=== PATIENT | male | born 2000 | race Caucasian/White ===

== ENCOUNTER 2023-01-26 19:26 | Emergency (ER) | payer OTHER, MEDICAID, SELFPAY ==
[2023-01-26 19:32] VITALS: BP 113/69; PULSE 111; RESP 20; TEMP 37; O2SAT 99; BMI 24.3
--- NOTE | 2023-01-26 19:45 | ED.PSYCH ---
HPI - Psych General Chief Complaint: Psychiatric Symptoms Stated Complaint: SI Time Seen by Provider: 01/26/23 19:32 Source: patient and EMS Mode of arrival: EMS Limitations: other (Autism) History of Present Illness HPI Narrative: Patient comes to the emergency room via ambulance . According to EMS, the patient made suicidal statements to his mother. On arrival to the emergency room, patient is very shy, unwilling to talk. Patient states that he feels well. When I asked the patient if he had suicidal thoughts or if he said something regarding suicide, his answer is ?maybe otherwise, patient not providing any other information. Related Data Allergies Allergy/AdvReac Type Severity Reaction Status Date / Time No Known Allergies Allergy Unverified 04/18/20 17:05 Review of Systems Review of Systems: Yes Unobtainable due to mental condition (Autism) [facility] Past Medical History Medical History (Updated 01/26/23 @ 20:12 by Raquel Redman MD) Autism Physical Exam Vital Signs: Vital Signs: Last Vital Signs Temp 98.6 F 01/26/23 19:32 Pulse 111 H 01/26/23 19:32 Resp 20 01/26/23 19:32 BP 113/69 01/26/23 19:32 Pulse Ox 99 01/26/23 19:32 O2 Del Method Room Air 01/26/23 19:32 BMI result Body Mass Index 24.3 Const: Other: Appearance: Alert. Distress Eyes: Pupils equal, round and reactive to light. ENT: Pharynx normal. Neck: Normal inspection. Neck supple. No lymph nodes noted. No crepitus CVS: Normal heart rate and rhythm. Pulses normal. Normal S1 and S2 Respiratory: No respiratory distress. Breath sounds normal. No Wheezing. No rales Abdomen: Soft and nontender. No rigidity. No distention. Skin: Skin warm and dry. Normal skin color. Normal skin turgor. Extremities: No lower extremity edema. No Lacerations. No Rash Neuro: No sensory deficit. Moving all extremities. No slurred speech. CN 2 through 12 grossly intact Psych: calm, cooperative, very shy, avoids eye contact, avoids answering any questions Course Course Course Narrative: -all of patient's labs pending -care team consult pending -distension observation started at 20:11 Discharge Plan Discharge Clinical Impression: Suicidal ideation Patient Disposition: Still a Patient
[2023-01-26 20:47] LABS: MANUAL DIFF FLAG NO
[2023-01-26 20:49] LABS: Basophils Absolute Auto 0.1 X10*3/uL (0.0-0.2); Basophils Percent Auto 0.7 % (0-2); Eosinophils Absolute Auto 0.2 X10*3/uL (0.0-0.4); Eosinophils Percent Auto 1.7 % (0-4); Hematocrit 48.3 % (42.0-52.0); Hemoglobin 16.5 g/dl (14.0-18.0); Imm Gran Abs Auto 0.03 X10*3/uL (0.00-0.03); Imm Gran Pct Auto 0.3 % (0.0-0.4); Lymphocytes Percent Auto 9.4 % (20-40); Mean Corpuscular HGB Conc 34.2 g/dl (31.0-36.0); Mean Corpuscular Hemoglobin 30.3 pg (27.0-33.0); Mean Corpuscular Volume 88.8 fL (80.0-98.0); Mean Platelet Volume 8.5 fL (9.4-12.4); Monocytes Absolute Auto 0.5 X10*3/uL (0.1-1.2); Monocytes Percent Auto 4.2 % (2-11); Neutrophils Absolute Auto 8.9 x10*3/uL (2.0-8.3); Neutrophils Percent Auto 83.7 % (45-73); Platelet Count 330 X10*3/uL (160-400); Red Blood Count 5.44 X10*6/uL (4.60-5.80); Red Cell Distribution Width 12.1 % (11.0-16.0); White Blood Count 10.6 X10*3/uL (4.8-10.8)
[2023-01-26 20:50] LABS: Appearance Urine Clear; Color Urine Yellow; Glucose Urine UA Negative (Negative); Leukocyte Esterase Urine Negative (Negative); Nitrite Urine Negative (Negative); PH 6.5 (5.0-9.0); Specific Gravity - Urine <= 1.005 (1.005-1.025); Urine Blood Negative (Negative); Urine Ketones Negative (Negative); Urine Protein Negative (Neg-Trace)
[2023-01-26 21:05] LABS: Amphetamine Screen Urine Not Detected (Not Detect); Barbiturates, Urine Not Detected (Not Detect); Benzodiazepines Screen Urine Not Detected (Not Detect); Cannabinoid Screen Urine Not Detected (Not Detect); Cocaine Screen Urine Not Detected (Not Detect); Fentanyl, urine Not Detected (Not Detect); Opiate Screen Urine Not Detected (Not Detect); Phencyclidine Screen Urine Not Detected (Not Detect)
[2023-01-26 21:07] LABS: Acetaminophen LAB < 17 mcg/mL (<30); Salicylate < 5.0 mg/dL (15-30)
[2023-01-26 21:13] LABS: Alanine Aminotransferase 10 U/L (0-40); Albumin Level 5.3 g/dL (3.5-5.0); Alkaline Phosphatase 56 U/L (39-117); Anion Gap 15 (12-20); Aspartate Amino Transferase 14 U/L (5-37); Bilirubin Direct 0.2 mg/dL (0.0-0.5); Bilirubin Total 0.7 mg/dL (0.0-1.0); Blood Urea Nitrogen 10 mg/dL (9-16); Calcium 10.9 mg/dL (8.4-10.2); Carbon Dioxide 26 mmol/L (22-29); Chloride 104 mmol/L (96-108); Estimated Glomerular Filt Rate > 60; Ethanol < 10 mg/dL; Glucose Random 105 mg/dL (60-115); Potassium 3.8 mmol/L (3.3-5.1); Sodium 141 mmol/L (135-145)
[2023-01-26 21:37] VITALS: BP 146/68; PULSE 102; RESP 20; TEMP 37.2; O2SAT 100
[2023-01-27 01:34] VITALS: BP 103/67; PULSE 81; RESP 20; TEMP 36.4; O2SAT 98
[2023-01-27 06:24] VITALS: RESP 18
--- NOTE | 2023-01-27 06:37 | PC.NURSE ---
Patient slept through the night, no distress observed/reported, patient was seen by care team, disposition current provider, mother will come pick him up at 8 am this morning, discharge paper is up, VSS, behavior non concerning, currently not on any medication will continue to monitor.
== END 2023-01-27 07:33 | disposition home or self-care (01) ==
PROVIDERS: Emergency Provider Emergency Medicine
DX: R45.851 Suicidal ideations (principal); Z79.899 Other long term (current) drug therapy
CPT/HCPCS: 36415; 80048; 80076; 80143; 80179; 80307; 81003; 85025; 99284; S9485

== ENCOUNTER 2023-05-31 11:20 | Inpatient (IN) | payer MEDICAID, SELFPAY ==
[2023-05-31] VITALS (8 sets, daily range): BP systolic 105–125; BP diastolic 49–67; PULSE 84–118; RESP 16–22; TEMP 36.7–37.4; O2SAT 98–100; BMI 16.8
--- NOTE | ~2023-05-31 | XR_ITS ---
EXAMINATION: XR CHEST CLINICAL INFORMATION: Tachycardia COMPARISON: Previous chest x-ray 2016 TECHNIQUE: 2 views of the chest were obtained. FINDINGS: The cardiac and mediastinal contours are normal. The lungs are well-inflated. The lungs are clear. No pleural effusion or pneumothorax. Normal bony structures. XR/XR chest 2V IMPRESSION: Well-inflated lungs.
--- NOTE | ~2023-05-31 | CT_ITS ---
EXAMINATION: CT ABDOMEN AND PELVIS WITHOUT AND WITH CONTRAST CLINICAL INFORMATION: Left lower quadrant pain. Black stool. Rule out GI bleed. COMPARISON: None available. TECHNIQUE: Axial images through the abdomen and pelvis pre and post 80 mL Omnipaque 350 IV contrast. Sagittal and coronal reconstructions on the technologist workstation were performed. This CT examination was performed using dose optimization techniques as appropriate, variously including the following: *Automated exposure control *Adjustment of mA and/or kV according to patient size (this includes techniques or standardized protocols for targeted exams where dose is matched to indication/reason for exam; i.e. extremities or head) *Use of iterative reconstruction technique DLP: 667 mGy-cm FINDINGS: Exam is limited due to motion artifact and late timing of the arterial phase imaging. The lung bases are clear. The liver, spleen, pancreas, gallbladder, adrenal glands and kidneys are normal. The bladder is normal. Small and large bowel are unremarkable. No evidence of active GI bleeding is appreciated. The appendix is normal. The stomach is normal. No ascites or adenopathy. No hernia. Vascular structures are normal. Normal sized prostate gland. Bony structures are unremarkable. CT/CT gi bleed abd pel wo/w IVcon IMPRESSION: Limited exam due to motion artifact and late timing of IV contrast. No evidence of active GI bleeding seen.
--- NOTE | 2023-05-31 11:27 | ED.GENADULT ---
HPI - General Adult General Chief complaint: Nausea/Vomiting/Diarrhea Stated complaint: Body aches/Dizziness/Syncope Time Seen by Provider: 05/31/23 12:21 Source: patient, family, RN notes reviewed and old records reviewed Mode of arrival: ambulatory History of Present Illness HPI narrative: 23-year-old male with a past medical history of autism, partial complex seizures noncompliant on antiepileptics x years, presenting to the ED with mother complaining of body aches / myalgias, abdominal discomfort, nausea, vomiting, and dark/black diarrhea x2 days. Mother reports syncopal episode today in the bathroom, unwitnessed, patient was found on floor by sister confused but awake, no reported urinary incontinence. Per mother stool was noted all over bathroom. denies fever/chills, cough, recent travel, suspicious food intake, anticoagulation use, NSAID or EtOH use, dysuria/hematuria Onset (ago): day(s) Related Data Home Medications Medication Instructions Recorded Confirmed No Known Home Meds 01/26/23 01/26/23 Allergies Allergy/AdvReac Type Severity Reaction Status Date / Time No Known Allergies Allergy Verified 05/31/23 11:33 Review of Systems Review of Systems: Constitutional: No Fever, No Chills, + Fatigue, No Malaise, +pale ENT/Mouth: No Ear Pain, No Nasal Congestion, No sore throat, No Rhinorrhea, No Swallowing Difficulty Eyes: No Eye Pain, No Swelling, No Redness, No Vision Changes Cardiovascular: No Chest Pain, No SOB, No Edema, No Palpitations Respiratory: No Cough, No Sputum, No Dyspnea Gastrointestinal: + Nausea, + Vomiting, + Diarrhea, No Constipation, +Abdominal pain, No Hematochezia, + Melena Genitourinary: No Dysuria, No Urinary Frequency, No Hematuria, No Urinary Incontinence/retention, No Flank Pain Musculoskeletal: No joint pain, + Myalgias, No Joint Swelling Skin: No Skin Lesions, No rash Neuro: No Weakness, No Numbness, No Paresthesias, ?Loss of Consciousness, No Dizziness, ?head trauma Yes all other systems are reviewed and are negative Constitutional: Constitutional: Reports as per HPI Neurologic: Denies Abnormal speech present PMFSH Past Medical History Attestation statement: The following information was validated with the patient. Source: old records reviewed Medical History Autism Social History Social History Advance Directives: No Physical Exam ED Vital Signs: Vital Signs - 24 hr 05/31/23 11:27 05/31/23 13:55 05/31/23 14:00 Temperature 98.0 F 98.3 F Pulse Rate 118 H 104 H 100 Respiratory Rate 20 18 Blood Pressure 105/49 L 120/61 125/67 Pulse Oximetry 100 98 98 Oxygen Delivery Method Room Air Room Air Room Air 05/31/23 15:03 Temperature Pulse Rate 103 H Respiratory Rate 18 Blood Pressure 115/55 L Pulse Oximetry 98 Oxygen Delivery Method Room Air BMI result Body Mass Index 16.8 Const Other: pale General: cooperative and no acute distress Nutritional Appearance: thin Orientation/consciousness: patient oriented x3 Limitations: no limitations HENMT Head: Yes normal to inspection and Yes atraumatic Ears: hearing grossly normal bilaterally General nose exam: Normal external nose present Face and sinus: Yes normal facial exam Eyes General: appearance normal, both eyes and all related structures EOM: EOMs intact bilaterally Neck Neck: Yes normal visual inspection and Yes no meningeal signs Resp Effort & Inspection: normal respiratory effort and no respiratory distress Auscultation: clear to auscultation bilaterally Cardio Rate: tachycardic Heart sounds: S1 normal heart sound present and S2 normal heart sound present GI Inspection: Yes normal to inspection Palpation (GI): Soft to palpation, Tenderness to palpation present (GI) in the LLQ; with no rebound tenderness, no guarding and not rigid Rectal Exam - Male: Yes heme positive stool General: Yes no CVA tenderness Back/Spine/Pelvis Back: no CVA tenderness Skin Rashes: no rashes Wounds: no wounds Neuro General: patient oriented x3, gait normal, tone normal, moves all extremities, no meningeal signs, no focal motor deficits and CN's II-XI intact bilaterally Cranial nerves: Yes CN's II-XII intact bilaterally and Yes Bilaterally intact EOM present Speech: No Abnormal speech present Motor exam (neuro): 5/5 motor strength present throughout Extrem General: Yes normal to inspection Course Course Course Narrative: This is an RME: Additional HPI, ROS, PE not included below will be deferred to primary provider. This is a [id number]-male, with a hx partial complex seizures and autism, presenting to the emergency department with a complaint of body aches, diarrhea and vomiting x 2 days. Pt had 1 episode of syncope after having a bowel movement and hot shower - unsure of hitting head. Mother states that patient refused take his seizure medications therefore she has not been giving them to him. Patient pale appearing, tachycardic 118, blood pressure 105/49. Plan: labs, UA, viral swabs ordered - 1330-- leukocytosis of 25 > will empirically cover with Zosyn.. H&H 13.4/39.7 (previous from Dec was 16.5/48.3) > concern for GI bleed - potassium 3.2 > 40 mEq p.o. repletion ordered. BUN of 35 with lactic acid of 4.5 >> lactic acidosis could be reactive from ?seizure vs GIB & dehydration. Obtained records from Neurology from 2016 and patient was previously on Keppra 500mg BID, will give loading IV dose - occult stool positive. COVID/flu/ RSV negative - 1528-- Repeat lactic acid 1.3 XR chest 2V IMPRESSION: Well-inflated lungs. -1626-- case discussed with GI, Dr. Richardson who recommended admission, ppi, trending H&H and possible endoscopy tomorrow. Will keep NPO Medications Administered Generic Name Dose Route Start Last Admin Trade Name Freq PRN Reason Stop Dose Admin Pantoprazole Sodium 80 mg/ 100 mls @ 10 mls/hr 05/31/23 13:30 05/31/23 14:00 Sodium Chloride IV 8 mg/hr .Q10H JOHN 10 mls/hr Administration 8 MG/HR Discontinued Medications Generic Name Dose Route Start Last Admin Trade Name Freq PRN Reason Stop Dose Admin Sodium Chloride 1,590 mls @ 1,590 mls/hr 05/31/23 12:30 05/31/23 13:50 Ns 30 ml/kg infuse over 1 hr (1590 ml) 05/31/23 13:29 Infused IV Infusion .Q1H STA Piperacillin Sod/Tazobactam 50 mls @ 100 mls/hr 05/31/23 12:52 05/31/23 13:28 Sod 3.375 gm/ Sodium Chloride IV 05/31/23 13:21 Infused ONCE ONE Infusion Levetiracetam 1,000 mg in 100 mls @ 400 mls/hr 05/31/23 13:31 05/31/23 14:24 Keppra IV 05/31/23 13:45 Infused ONCE ONE Infusion Iohexol 80 ml 05/31/23 14:37 05/31/23 14:39 Iohexol 350 Mg/Ml 100 Ml Infus..Btl IV 05/31/23 14:38 80 ml ONCE ONE Administration Pantoprazole Sodium 80 mg 05/31/23 13:19 05/31/23 13:27 Pantoprazole Sodium 40 Mg/10 Ml Vial IVPUSH 05/31/23 13:20 80 mg ONCE ONE Administration Potassium Chloride 40 meq 05/31/23 13:34 05/31/23 14:07 Potassium Chloride Packet 20 Meq Packet PO 05/31/23 13:35 40 meq ONCE ONE Administration Medical Decision Making Medical Decision Making [facility] Narrative: 23-year-old male with a past medical history of autism, partial complex seizures noncompliant on antiepileptics x years, presenting to the ED with mother complaining of body aches / myalgias, abdominal discomfort, nausea, vomiting, and dark/black diarrhea x2 days w/ syncopal episode today in the bathroom. On exam tachycardic, pale, thin, abdomen soft with left lower quadrant tenderness, no rebound or guarding, black stool noted on rectal, no focal neuro deficits. No evidence of trauma. Concern for seizure versus syncope. Concern for UGIB vs colitis/diverticulitis vs viral illness vs gastroenteritis. lower suspicion for ACS/PE or ICH plan: EKG, labs, UA, occult stool, CT AP, IVF, re-evaluate Please refer to course for remaining clinical decision making, interpretation of labs/imaging results, and discussions with consultants and/or family members. Differential Diagnosis Differential Diagnoses: The differential diagnosis associated with the presentation includes As above Admission/Observation Consideration of admission/observation: Escalation of care including admission/observation considered Consult Healthcare Provider Management of the patient was discussed with: Jewelry Technician Lab Data MDM Lab Attestation statement: I reviewed the patient's lab results. 05/31/23 11:45 05/31/23 11:45 Labs: Lab Results 05/31/23 05/31/23 05/31/23 Range/Units 11:45 12:56 14:54 WBC 25.0 H (4.8-10.8) X10*3/uL RBC 4.37 L (4.60-5.80) X10*6/uL Hgb 13.4 L (14.0-18.0) g/dl Hct 39.7 L (42.0-52.0) % MCV 90.8 (80.0-98.0) fL MCH 30.7 (27.0-33.0) pg MCHC 33.8 (31.0-36.0) g/dl RDW 11.9 (11.0-16.0) % Plt Count 336 (160-400) X10*3/uL MPV 9.4 (9.4-12.4) fL Immature Gran % (Auto) 0.6 H (0.0-0.4) % Neut % (Auto) 88.9 H (45-73) % Lymph % (Auto) 5.9 L (20-40) % [place] % (Auto) 4.4 (2-11) % Eos % (Auto) 0.0 (0-4) % Baso % (Auto) 0.2 (0-2) % Lymph # (Auto) 1.5 (1.2-4.9) X10*3/uL [place] # (Auto) 1.1 (0.1-1.2) X10*3/uL Eos # (Auto) 0.0 (0.0-0.4) X10*3/uL Baso # (Auto) 0.1 (0.0-0.2) X10*3/uL Abs Immat Gran (auto) 0.16 H (0.00-0.03) X10*3/uL Absolute Neuts (auto) 22.2 H (2.0-8.3) x10*3/uL Absolute Nucleated RBC 0.000 (0.0-0.012) X10*3/uL Nucleated RBC % (auto) 0.0 (0.0-0.2) /100WBC Smear Tech's Comments VERIFIED Sodium 142 (135-145) mmol/L Potassium 3.2 L (3.3-5.1) mmol/L Chloride 104 (96-108) mmol/L Carbon Dioxide 21 L (22-29) mmol/L Anion Gap 20 (12-20) BUN 35 H (9-16) mg/dL Creatinine 1.20 (0.5-1.4) mg/dL Estim Creat Clear Calc 72.9 Estimated GFR > 60 Random Glucose 130 H (60-115) mg/dL Lactic Acid 4.5 H* (0.5-2.0) mmol/L Lactic Acid F/U @ 2Hr 1.3 (0.5-2.0) mmol/L Calcium 9.3 D (8.4-10.2) mg/dL Magnesium 2.3 (1.6-2.6) mg/dL Total Bilirubin 0.5 (0.0-1.0) mg/dL Direct Bilirubin 0.3 (0.0-0.5) mg/dL AST 15 (5-37) U/L ALT 11 (0-40) U/L Alkaline Phosphatase 40 (39-117) U/L Troponin I High Sens < 2.7 (<3.5-35.0) ng/L Total Protein 7.0 (6.5-8.0) g/dL Albumin 4.5 (3.5-5.0) g/dL Lipase 35 (8-78) U/L Stool Occult Blood POSITIVE (NEGATIVE) Ethyl Alcohol < 10 mg/dL Influenza Type A (PCR) NEGATIVE (Negative) Influenza Type B (PCR) NEGATIVE (Negative) RSV RNA Qual (PCR) NEGATIVE (Negative) SARS-CoV-2 RNA (RT-PCR) NEGATIVE (Negative) Independent Interpretation I performed an independent interpretation of an: EKG ( my interpretation sinus tachycardia rate of 101. QTC 440. SC interval 150. No STEMI) Radiology Impression Discussion of test interpretation with radiology: I have reviewed the radiologist's reading. Independent Historian Clinical information obtained from an independent historian. History obtained from or confirmed by: Parent External Record Review External record reviewed: Inpatient record, Office record, Outpatient record, Prior outpatient labs, Prior outpatient radiology, Primary care record and Outside ED record Tests considered The following testing was considered but not selected: As above Chronic Conditions Patient?s care impacted by: Other ( autism) Critical Care Time Critical Care Time Critical Care Time: Yes Total Critical Care Time: 60 Attestation: I have personally provided critical care time exclusive of time spent on separately billable procedures. Time includes review of lab data, radiology results, discussion with consultants, and monitoring for potential decompensation. Intervention performed as documented. Discharge Plan Discharge Clinical Impression: UGIB (upper gastrointestinal bleed), Hypokalemia, Lactic acidosis Patient Disposition: Admitted As Inpatient
[2023-05-31 11:56] LABS: Basophils Absolute Auto 0.1 X10*3/uL (0.0-0.2); Basophils Percent Auto 0.2 % (0-2); Hematocrit 39.7 % (42.0-52.0); Hemoglobin 13.4 g/dl (14.0-18.0); Imm Gran Abs Auto 0.16 X10*3/uL (0.00-0.03); Imm Gran Pct Auto 0.6 % (0.0-0.4); Lymphocytes Absolute Auto 1.5 X10*3/uL (1.2-4.9); Lymphocytes Percent Auto 5.9 % (20-40); MANUAL DIFF FLAG SCAN; Mean Corpuscular HGB Conc 33.8 g/dl (31.0-36.0); Mean Corpuscular Hemoglobin 30.7 pg (27.0-33.0); Mean Corpuscular Volume 90.8 fL (80.0-98.0); Mean Platelet Volume 9.4 fL (9.4-12.4); Monocytes Absolute Auto 1.1 X10*3/uL (0.1-1.2); Monocytes Percent Auto 4.4 % (2-11); Neutrophils Absolute Auto 22.2 x10*3/uL (2.0-8.3); Neutrophils Percent Auto 88.9 % (45-73); Platelet Count 336 X10*3/uL (160-400); Red Blood Count 4.37 X10*6/uL (4.60-5.80); Red Cell Distribution Width 11.9 % (11.0-16.0); SCAN SMEAR FLAG 1
[2023-05-31 12:17] LABS: SLIDE REVIEW VERIFIED
[2023-05-31 12:18] LABS: Alanine Aminotransferase 11 U/L (0-40); Albumin Level 4.5 g/dL (3.5-5.0); Alkaline Phosphatase 40 U/L (39-117); Anion Gap 20 (12-20); Aspartate Amino Transferase 15 U/L (5-37); Bilirubin Direct 0.3 mg/dL (0.0-0.5); Bilirubin Total 0.5 mg/dL (0.0-1.0); Blood Urea Nitrogen 35 mg/dL (9-16); Calcium 9.3 mg/dL (8.4-10.2); Carbon Dioxide 21 mmol/L (22-29); Chloride 104 mmol/L (96-108); Creatinine Clr Calc Pharmacy 72.9; Estimated Glomerular Filt Rate > 60; Glucose Random 130 mg/dL (60-115); Magnesium 2.3 mg/dL (1.6-2.6); Potassium 3.2 mmol/L (3.3-5.1); Sodium 142 mmol/L (135-145)
[2023-05-31 12:27] LABS: Lactic Acid 4.5 mmol/L (0.5-2.0)
[2023-05-31 12:32] LABS: Influenza A PCR NEGATIVE (Negative); Influenza B PCR NEGATIVE (Negative); Resp Syncy Virus RNA Qual PCR NEGATIVE (Negative); SARS COV2 PCR INHOUSE NEGATIVE (Negative)
[2023-05-31] MEDS: 0.9 % Sodium Chloride 1,590 ML 1590 ML IV (12:48)
[2023-05-31 12:56] LABS: Lipase 35 U/L (8-78)
[2023-05-31] MEDS: Piperacillin Sodium/Tazobactam 3.375 GM in 0.9 % Sodium Chloride 50 ML IV (12:58)
[2023-05-31 13:01] LABS: Troponin-I High Sensitivity < 2.7 ng/L (<3.5-35.0)
[2023-05-31 13:04] LABS: OBS Int Ctl Valid YES; OBS1 POSITIVE (NEGATIVE)
--- NOTE | 2023-05-31 13:12 | PC.NURSE ---
pt comes in after passing out in shower, and 2 days of body aches and intermittent vomiting. Pt is pale, lips dry. reports 10/10 body pain. labs and BCs drawn. Fluids started and abx started per sepsis protocol. XR taken. Urine sample pending. pt sinus tach on monitor - rate up to 120, stable around 100 when resting. mom also reports that pt has an episode of dark black stool. rectal exam done by JENIFFER and sent to lab mom at bedside, plan of care ongoing
[2023-05-31] MEDS: Pantoprazole Sodium 40 MG/10 ML VIAL 80 MG IVPUSH (13:27)
--- NOTE | 2023-05-31 13:29 | ECG_ITS ---
Test Reason : DIZZINESS Blood Pressure : / mmHG Vent. Rate : 101 BPM Atrial Rate : 101 BPM P-R Int : 150 ms QRS Dur : 098 ms QT Int : 340 ms P-R-T Axes : 083 080 073 degrees QTc Int : 440 ms Sinus tachycardia Possible Left atrial enlargement RSR' or QR pattern in V1 suggests right ventricular conduction delay Borderline ECG No previous ECGs available Referred By: Lucero Hoffman Electronically Signed By:BILLY CALLAHAN MD
[2023-05-31 13:40] LABS: Ethanol < 10 mg/dL
[2023-05-31 13:51] LABS: Reflex Lactate? Lactic Acid Added
[2023-05-31] MEDS: Pantoprazole Sodium 80 MG in 0.9 % Sodium Chloride 80 ML 10 MG IV (14:00)
[2023-05-31] MEDS: Potassium Chloride Packet 20 MEQ PACKET 40 MEQ PO (14:07)
[2023-05-31] MEDS: levETIRAcetam in NaCl (iso-os) 1,000 MG/100 ML PIGGYBACK 400 MG IV (14:09)
[2023-05-31] MEDS: iohexoL 350 MG/ML 100 ML INFUS..BTL 80 ML IV (14:39)
[2023-05-31 15:20] LABS: ~Lactic Acid-LAB USE ONLY 1.3 mmol/L (0.5-2.0)
--- NOTE | 2023-05-31 16:46 | PHA.MEDREC ---
Pharmacy Consult ? Medication Reconciliation Pharmacy has completed the medication reconciliation. Patient report I don't do that anymore and then when ask more question reported I don't think so. Patient has not claim history. Terra Alarcon, LoganD
--- NOTE | 2023-05-31 17:08 | PM.IMHP ---
History of Present Illness Date of Service: 05/31/23 Attending physician on admission: Alec Novak Chief Complaint: syncope, ugib 23-year-old male with history of autism, partial complex seizure disorder presents the ED with his mother for evaluation of syncope. The patient is not a good historian secondary to his autism. His mother states that 2 days ago, he was experiencing diffuse myalgias and vomited dark brown liquid x2. No yadiel blood or coffee-grounds noted. She states then today has had 2 episodes of diarrhea. While having a bowel movement, he appeared to have syncopized and was found by his sister. Per their report, there was stool around the bathroom that was black in appearance with tinges of blood. The patient was noted to be pale, clammy, and ?out of it?. The patient has not been taking any antiepileptics in several years and has not seen a neurologist since 2017 (Elisa) because he felt ?he was cured?. He has also not had any seizure activity since that time. No recent illness, fevers, chills, abdominal pain, persistent nausea. Not on any blood thinners. No history of similar symptoms. On arrival, patient tachycardic to 118, afebrile, normal thermic, no hypotension. No hypoxia. Initially had leukocytosis of 25.0, H/H 13.4/39.7, MCV 90 0.8%. Renal function normal, electrolyte levels normal except for potassium 3.2, CO2 21. Initial lactic acid 4.5, repeat 1.3 following 1.6 L IVF. Troponin undetectable. Following IV fluids, hematology improved with leukocytosis 16.5 but drop in H/H to 11.1/32.3%. Stool was heme positive. Urinalysis unremarkable. Urine tox screen unremarkable, ethyl alcohol level undetectable. Negative for influenza, RSV, COVID-19. Chest x-ray negative for any acute cardiopulmonary. CT abdomen/pelvis without any evidence of active GI bleeding. In the ED, given 1000 mg IV Keppra, 1600 mL IVF, 80 mg pantoprazole IV drip, 40 mEq potassium chloride, and 3.375 g IV Zosyn. Review of Systems Review of Systems: General: No fevers, malaise, unintentional weight loss HEENT: No blurred vision, diplopia. No sore throat, nasal congestion, rhinorrhea, sinus pain, ear pain Cardiovascular: No chest pain, palpitations, or leg edema Respiratory: No shortness of breath, wheezing, cough GI: +vomiting, +diarrhea, +melena. No abdominal pain, constipation, mhematochezia : No dysuria, hematuria, increased urinary frequency, decreased urinary output MSK: No myalgia, back pain Neuro: No headaches, weakness, paresthesias. +syncope Skin: No rashes or lesions [facility] Medical History (Updated 05/31/23 @ 17:47 by JENIFFER Bradshaw) Complex partial seizure disorder Autism Social History Advance Directives: No Meds Allergies Allergy/AdvReac Type Severity Reaction Status Date / Time No Known Allergies Allergy Verified 05/31/23 11:33 Active Medications: Current Medications Acetaminophen (Acetaminophen 325 Mg Tablet) 650 mg PO Q6H PRN PRN Reason: Pain, Mild (Pain Scale 1-3) Docusate Sodium (Docusate Sodium 100 Mg Capsule) 100 mg PO DAILY PRN PRN Reason: Constipation Pantoprazole Sodium 80 mg/ (Sodium Chloride) 100 mls @ 10 mls/hr IV .Q10H [facility], [facility] Last Admin: 05/31/23 14:00 Dose: 8 mg/hr, 10 mls/hr Levetiracetam (Levetiracetam 500 Mg Tablet) 500 mg PO BID [facility]1983 Ondansetron HCl (Ondansetron Hcl 4 Mg/2 Ml Vial) 4 mg IVPUSH Q8H PRN PRN Reason: Nausea and Vomiting Pantoprazole Sodium (Pantoprazole Sodium 40 Mg/10 Ml Vial) 40 mg IVPUSH BID@0630,1630 [facility] Sodium Chloride (0.9 % Sodium Chloride Flush 3 Ml Syringe) 3 ml IVFLUSH QSHIFT [facility] Home Medications Medication Instructions Recorded Confirmed Last Taken Type No Known Home Meds 01/26/23 05/31/23 Unknown History Physical Exam Vital Signs and Narrative: Vital Signs: Last Vital Signs Temp 98.5 F 05/31/23 17:03 Pulse 103 H 05/31/23 17:03 Resp 16 05/31/23 17:03 BP 118/60 05/31/23 17:03 Pulse Ox 100 05/31/23 17:03 O2 Del Method Room Air 05/31/23 16:49 BMI result Body Mass Index 16.8 Results Labs 05/31/23 17:08 05/31/23 11:45 Labs: Laboratory Results - last 24 hr 05/31/23 05/31/23 05/31/23 11:45 12:56 14:54 MCV 90.8 MCH 30.7 MCHC 33.8 RDW 11.9 Plt Count 336 MPV 9.4 Immature Gran % (Auto) 0.6 H Neut % (Auto) 88.9 H Lymph % (Auto) 5.9 L [place] % (Auto) 4.4 Eos % (Auto) 0.0 Baso % (Auto) 0.2 Lymph # (Auto) 1.5 [place] # (Auto) 1.1 Eos # (Auto) 0.0 Baso # (Auto) 0.1 Abs Immat Gran (auto) 0.16 H Absolute Neuts (auto) 22.2 H Absolute Nucleated RBC 0.000 Nucleated RBC % (auto) 0.0 Smear Tech's Comments VERIFIED Anion Gap 20 Estim Creat Clear Calc 72.9 Estimated GFR > 60 Random Glucose 130 H Lactic Acid 4.5 H* Lactic Acid F/U @ 2Hr 1.3 Calcium 9.3 D Magnesium 2.3 Total Bilirubin 0.5 Direct Bilirubin 0.3 AST 15 ALT 11 Alkaline Phosphatase 40 Total Protein 7.0 Albumin 4.5 Lipase 35 Stool Occult Blood POSITIVE Ethyl Alcohol < 10 Influenza Type A (PCR) NEGATIVE Influenza Type B (PCR) NEGATIVE RSV RNA Qual (PCR) NEGATIVE SARS-CoV-2 RNA (RT-PCR) NEGATIVE Imaging Radiologist's Impressions: Impressions Chest X-Ray 05/31/23 13:10 IMPRESSION: Well-inflated lungs. Assessment and Plan (1) Lactic acidosis: Status: Acute (2) Hypokalemia: Status: Acute (3) UGIB (upper gastrointestinal bleed): Status: Acute (4) Syncope: Status: Acute Plan 23-year-old male with history of autism, partial complex seizure disorder to be observed for syncope with possible UGIB. #Syncope- vasovagal vs r/t seizure -Given 1.6L IVF in ED -EKG shows sinus tachycardia, rate 101, no significant ST/T-wave abnormality -Leukocytosis- likely reactive, Lactis acidosis- ?due to hypovolemia/hypoperfusion vs seizure -eeg a.m. -neurology consult -monitor on telemetry -continue Keppra -seizure precautions #Normocytic anemia- ? acute UGIB -per mom, sister reported melena with bm this am and dark brown vomitus on wednesday -Hct 39.7 --> 32.3. above transfusion threshold -IV PPI -Clear liquid diet -GI consult - Monitor on telemetry -Repeat CBC @9pm, and am #Acute hypokalemia -repleted #History partial complex seizure disorder -noncompliant with anti-epileptics x years -keppa and eeg as above DVT prophylaxis- SCPs Full code Time Spent With Patient Time: Total time managing care of this patient today ____ minutes. Quality Stroke Does the patient have a stroke diagnosis?: No VTE Prior VTE?: No VTE Risk Level:: Medical - moderate - high VTE Device Contraindication: N/A - Device Ordered VTE Drug Contraindication: Treatment Not Indicated
[2023-05-31 17:11] LABS: MANUAL DIFF FLAG NO
--- NOTE | 2023-05-31 17:11 | MHC.EDTECH ---
This pct just assumed care of patient ,vitals taken and Pt belonging list done ,Pt is hooked up to sr. media manager ,Pt comfortable ,no apparent distress noted ,pt mom at bedside .
[2023-05-31 17:13] LABS: Appearance Urine Clear; Basophils Percent Auto 0.2 % (0-2); Color Urine Yellow; Eosinophils Percent Auto 0.1 % (0-4); Glucose Urine UA Negative (Negative); Hematocrit 32.3 % (42.0-52.0); Hemoglobin 11.1 g/dl (14.0-18.0); Imm Gran Abs Auto 0.08 X10*3/uL (0.00-0.03); Imm Gran Pct Auto 0.5 % (0.0-0.4); Leukocyte Esterase Urine Negative (Negative); Lymphocytes Absolute Auto 2.5 X10*3/uL (1.2-4.9); Lymphocytes Percent Auto 15.2 % (20-40); Mean Corpuscular HGB Conc 34.4 g/dl (31.0-36.0); Mean Corpuscular Hemoglobin 30.9 pg (27.0-33.0); Mean Platelet Volume 9.2 fL (9.4-12.4); Monocytes Absolute Auto 0.7 X10*3/uL (0.1-1.2); Neutrophils Absolute Auto 13.2 x10*3/uL (2.0-8.3); Nitrite Urine Negative (Negative); PH 6.5 (5.0-9.0); Platelet Count 277 X10*3/uL (160-400); Red Blood Count 3.59 X10*6/uL (4.60-5.80); Specific Gravity - Urine >= 1.030 (1.005-1.025); Urine Blood Negative (Negative); Urine Ketones Negative (Negative); Urine Protein Negative (Neg-Trace); White Blood Count 16.5 X10*3/uL (4.8-10.8)
[2023-05-31 17:18] LABS: Amphetamine Screen Urine Not Detected (Not Detect); Barbiturates, Urine Not Detected (Not Detect); Benzodiazepines Screen Urine Not Detected (Not Detect); Cannabinoid Screen Urine Not Detected (Not Detect); Cocaine Screen Urine Not Detected (Not Detect); Fentanyl, urine Not Detected (Not Detect); Opiate Screen Urine Not Detected (Not Detect); Phencyclidine Screen Urine Not Detected (Not Detect)
--- NOTE | 2023-05-31 18:06 | PC.NURSE ---
pt reports that he is feeling improvement. pt is more talkative than previously, more alert, and reports no more body pain. repeat chem labs show some improvement. seizure precautions in place. waiting for room assignment.
--- NOTE | 2023-05-31 19:09 | PC.NURSE ---
report given to [facility] nurse.
--- NOTE | 2023-05-31 20:10 | PC.NURSE ---
ambulated to the bathroom , heart rate 148 , urinated and had 1 loose black BM ,back to bed heart rate down to 80 NSR
[2023-05-31 21:18] LABS: Basophils Absolute Auto 0.1 X10*3/uL (0.0-0.2); Basophils Percent Auto 0.4 % (0-2); Eosinophils Absolute Auto 0.1 X10*3/uL (0.0-0.4); Eosinophils Percent Auto 0.7 % (0-4); Hematocrit 36.7 % (42.0-52.0); Hemoglobin 12.3 g/dl (14.0-18.0); Imm Gran Abs Auto 0.04 X10*3/uL (0.00-0.03); Imm Gran Pct Auto 0.3 % (0.0-0.4); Lymphocytes Absolute Auto 3.4 X10*3/uL (1.2-4.9); Lymphocytes Percent Auto 24.7 % (20-40); MANUAL DIFF FLAG SCAN; Mean Corpuscular HGB Conc 33.5 g/dl (31.0-36.0); Mean Corpuscular Hemoglobin 30.8 pg (27.0-33.0); Mean Platelet Volume 10.3 fL (9.4-12.4); Monocytes Percent Auto 7.2 % (2-11); Neutrophils Absolute Auto 9.1 x10*3/uL (2.0-8.3); Neutrophils Percent Auto 66.7 % (45-73); PLT CLUMP 1; Red Blood Count 3.99 X10*6/uL (4.60-5.80); Red Cell Distribution Width 12.2 % (11.0-16.0); SCAN SMEAR FLAG 1
[2023-05-31 21:40] LABS: White Blood Count 13.7 X10*3/uL (4.8-10.8)
[2023-05-31 21:41] LABS: SLIDE REVIEW VERIFIED
[2023-05-31] MEDS: levETIRAcetam 500 MG TABLET PO (21:50)
--- NOTE | 2023-06-01 | EEG_ITS ---
FINDINGS: The waking background activity consists of a moderate voltage 9 to 10 hertz posterior alpha frequency that is seen symmetrically and attenuates well with eye opening while low-voltage fast frequencies predominate anteriorly. Photic stimulation is without activation. Hyperventilation was omitted. No focal, lateralizing, or paroxysmal discharges are seen. IMPRESSION: This waking EEG is within normal limits. MD LISETTE Le/ANALI / [phone]
[2023-06-01 03:00] VITALS: BP 108/51; PULSE 78; RESP 20; TEMP 36.4; O2SAT 99
[2023-06-01] MEDS: Pantoprazole Sodium 40 MG/10 ML VIAL IVPUSH ×2 (06:23→17:01)
[2023-06-01 06:41] LABS: MANUAL DIFF FLAG NO
[2023-06-01 06:49] LABS: Basophils Absolute Auto 0.1 X10*3/uL (0.0-0.2); Basophils Percent Auto 0.6 % (0-2); Eosinophils Absolute Auto 0.2 X10*3/uL (0.0-0.4); Eosinophils Percent Auto 1.9 % (0-4); Hematocrit 30.8 % (42.0-52.0); Hemoglobin 10.7 g/dl (14.0-18.0); Imm Gran Abs Auto 0.03 X10*3/uL (0.00-0.03); Imm Gran Pct Auto 0.3 % (0.0-0.4); Lymphocytes Absolute Auto 4.3 X10*3/uL (1.2-4.9); Lymphocytes Percent Auto 43.4 % (20-40); Mean Corpuscular HGB Conc 34.7 g/dl (31.0-36.0); Mean Corpuscular Hemoglobin 31.7 pg (27.0-33.0); Mean Corpuscular Volume 91.1 fL (80.0-98.0); Mean Platelet Volume 9.3 fL (9.4-12.4); Monocytes Absolute Auto 0.5 X10*3/uL (0.1-1.2); Monocytes Percent Auto 5.4 % (2-11); Neutrophils Absolute Auto 4.8 x10*3/uL (2.0-8.3); Neutrophils Percent Auto 48.4 % (45-73); Platelet Count 264 X10*3/uL (160-400); Red Blood Count 3.38 X10*6/uL (4.60-5.80); Red Cell Distribution Width 12.1 % (11.0-16.0)
[2023-06-01 07:06] LABS: Anion Gap 12 (12-20); Blood Urea Nitrogen 19 mg/dL (9-16); Calcium 8.8 mg/dL (8.4-10.2); Carbon Dioxide 22 mmol/L (22-29); Chloride 112 mmol/L (96-108); Creatinine Clr Calc Pharmacy 104.2; Estimated Glomerular Filt Rate > 60; Glucose Random 88 mg/dL (60-115); Potassium 3.3 mmol/L (3.3-5.1); Sodium 143 mmol/L (135-145)
[2023-06-01 07:35] VITALS: BP 114/58; PULSE 76; RESP 18; TEMP 36.6; O2SAT 100
[2023-06-01] MEDS: levETIRAcetam 500 MG TABLET PO ×2 (07:59→21:03)
[2023-06-01] MEDS: 0.9 % Sodium Chloride Flush 3 ML SYRINGE IVFLUSH ×3 (08:00→17:01)
--- NOTE | 2023-06-01 09:09 | MHC.CM.PN ---
EMR REVIEWED, PT W/AUTISM ADMITTED W/SEIZURE AND ?UGIB, CM MET W/PT AND PT'S MOTHER DEMARCUS WHO REPORTS PT LIVES W/HER AND HIS SISTERS, PT IS INDEP W/ALL CARE, NO DME/HOME SERVICES. PT EDUCATED W/ASSISTANCE OF DEMARCUS ON HCP'S, PT CURRENTLY DECLINES TO COMPLETE ONE AT THIS TIME. PER DEMARCUS SHE IS NOT AND PT DOES NOT HAVE A GUARDIAN. GOAL FOR DC IS HOME NO SERVICES. PER DEMARCUS PCP MAGALY GARCIA IS CORRECT AND PT HAS NOT BEEN VACCINATED FOR COVID19.
--- NOTE | 2023-06-01 10:39 | P.CNNE_ITS ---
History of Present Illness Data of Consult Service Date: 06/01/23 Primary Care Provider: ANANDA Spicer HPI Reason for consult: syncope, diarrhea This is a 23-year-old male with history of autism, partial complex seizure disorder on no meds for 6 yrs, presented to the ED with his mother for evaluation of syncope. His mother states that 2 days ago, he was experiencing diffuse myalgias and vomited dark brown liquid x2. No yadeil blood or coffee- grounds noted. She states then today has had 2 episodes of diarrhea. While having a bowel movement, he had a syncope and was found by his sister. There was stool around the bathroom that was black in appearance with tinges of blood. The patient was noted to be pale, clammy, and ?out of it?. No tongue bite. Was momentarily confused. No Sz activity noted by sister. The patient has not been taking any antiepileptics in several years and has not seen me since 2017 because he felt ?he was cured?. No recent illness, fevers, chills, abdominal pain, persistent nausea. Not on any blood thinners. No history of similar symptoms. On arrival, patient tachycardic to 118, afebrile, normal thermic, no hypotension. No hypoxia. Initially had leukocytosis of 25.0, H/H 13.4/39.7, MCV 90 0.8%. Renal function normal, electrolyte levels normal except for potassium 3.2, CO2 21. Initial lactic acid 4.5, repeat 1.3 following 1.6 L IVF. Troponin undetectable. Following IV fluids, hematology improved with leukocytosis 16.5 but drop in H/H to 11.1/32.3%. Stool was heme positive. Urinalysis unremarkable. Urine tox screen unremarkable, ethyl alcohol level undetectable. Negative for influenza, RSV, COVID-19. Chest x-ray negative for any acute cardiopulmonary. CT abdomen/pelvis without any evidence of active GI bleeding. In the ED, given 1000 mg IV Keppra, 1600 mL IVF, 80 mg pantoprazole IV drip, 40 mEq potassium chloride, and 3.375 g IV Zosyn. Review of Systems 2 Review of Systems: General: No fevers, malaise, unintentional weight loss HEENT: No blurred vision, diplopia. No sore throat, nasal congestion, rhinorrhea, sinus pain, ear pain Cardiovascular: No chest pain, palpitations, or leg edema Respiratory: No shortness of breath, wheezing, cough GI: +vomiting, +diarrhea, +melena. No abdominal pain, constipation, mhematochezia : No dysuria, hematuria, increased urinary frequency, decreased urinary output MSK: No myalgia, back pain Neuro: No headaches, weakness, paresthesias. +syncope Skin: No rashes or lesions Yes all other systems are reviewed and are negative Constitutional: Constitutional: Reports as per HPI Neurologic: Denies Abnormal speech present [facility] Past Medical History Medical History (Updated 06/01/23 @ 11:14 by Armaan Pérez MD) Complex partial seizure disorder Autism Social History Social History Patient Tobacco Use Status: Never used Tobacco Smoked in Last 30 Days: No Use of substances other than those prescribed or required for medical reasons: No Advance Directives: No Nutrition Risks: No Nutritional Risk service: No Meds Allergies Allergy/AdvReac Type Severity Reaction Status Date / Time No Known Allergies Allergy Verified 05/31/23 11:33 Active Medications: Current Medications Acetaminophen (Acetaminophen 325 Mg Tablet) 650 mg PO Q6H PRN PRN Reason: Pain, Mild (Pain Scale 1-3) Docusate Sodium (Docusate Sodium 100 Mg Capsule) 100 mg PO DAILY PRN PRN Reason: Constipation Levetiracetam (Levetiracetam 500 Mg Tablet) 500 mg PO BID [facility] Last Admin: 06/01/23 07:59 Dose: 500 mg Ondansetron HCl (Ondansetron Hcl 4 Mg/2 Ml Vial) 4 mg IVPUSH Q8H PRN PRN Reason: Nausea and Vomiting Pantoprazole Sodium (Pantoprazole Sodium 40 Mg/10 Ml Vial) 40 mg IVPUSH BID@0630,1630 [facility] Last Admin: 06/01/23 06:23 Dose: 40 mg Sodium Chloride (0.9 % Sodium Chloride Flush 3 Ml Syringe) 3 ml IVFLUSH QSHIFT [facility] Last Admin: 06/01/23 08:00 Dose: 3 ml Home Medications Medication Instructions Recorded Confirmed Last Taken Type No Known Home Meds 01/26/23 05/31/23 Unknown History Physical Exam 2 Vital Signs: Vital Signs: Last Vital Signs Temp 97.8 F 10/31/23 07:35 Pulse 76 06/01/23 07:35 Resp 18 06/01/23 07:35 BP 114/58 L 06/01/23 07:35 Pulse Ox 100 06/01/23 07:35 O2 Del Method Room Air 06/01/23 07:35 BMI result Body Mass Index 16.8 Const: Other: pale General: cooperative, healthy appearing and no acute distress N utritional Appearance: thin Orientation/consciousness: patient oriented x3 Limitations: no limitations HEENT: Head: Yes normal to inspection and Yes atraumatic Ears: hearing grossly normal bilaterally General nose exam: Normal external nose present Face and sinus: Yes normal facial exam Eyes: General: appearance normal, both eyes and all related structures EOM: EOMs intact bilaterally Neck: Neck: Yes normal visual inspection and Yes no meningeal signs Resp: Effort & Inspection: normal respiratory effort and no respiratory distress Auscultation: clear to auscultation bilaterally Cardio: Rate: regular rate and tachycardic Heart sounds: S1 normal heart sound present and S2 normal heart sound present GI: Inspection: Yes normal to inspection Palpation (GI): Soft to palpation, Tenderness to palpation present (GI) in the LLQ; with no rebound tenderness, no guarding and not rigid Rectal Exam - Male: Yes heme positive stool : General: Yes no CVA tenderness Back/Spine/Pelvis: Back: no CVA tenderness Skin: Rashes: no rashes Wounds: no wounds Neuro: Other: Slow in responses related to autism, but oriented x 3 General: patient oriented x3, gait normal, tone normal, moves all extremities, no meningeal signs, no focal motor deficits and CN's II-XI intact bilaterally Cranial nerves: Yes CN's II-XII intact bilaterally and Yes Bilaterally intact EOM present Speech: No Abnormal speech present Gait exam (Neuro): Normal gait present Motor exam (neuro): 5/5 motor strength present throughout Extrem: General: Yes normal to inspection Results Labs 06/01/23 06:14 06/01/23 06:14 Labs: Short CBC 05/31/23 05/31/23 05/31/23 Range/Units 11:45 17:08 21:20 WBC 25.0 H 16.5 H 13.7 H (4.8-10.8) X10*3/uL Hgb 13.4 L 11.1 L 12.3 L (14.0-18.0) g/dl Hct 39.7 L 32.3 L 36.7 L (42.0-52.0) % Plt Count 336 277 TNP (160-400) X10*3/uL 06/01/23 Range/Units 06:14 WBC 10.0 (4.8-10.8) X10*3/uL Hgb 10.7 L (14.0-18.0) g/dl Hct 30.8 L (42.0-52.0) % Plt Count 264 (160-400) X10*3/uL BMP 05/31/23 06/01/23 11:45 06:14 Sodium 142 143 Potassium 3.2 L 3.3 Chloride 104 112 H Carbon Dioxide 21 L 22 BUN 35 H 19 H Creatinine 1.20 0.84 Calcium 9.3 D 8.8 Liver Function 05/31/23 Range/Units 11:45 Total Bilirubin 0.5 (0.0-1.0) mg/dL Direct Bilirubin 0.3 (0.0-0.5) mg/dL AST 15 (5-37) U/L ALT 11 (0-40) U/L Alkaline Phosphatase 40 (39-117) U/L Albumin 4.5 (3.5-5.0) g/dL Urine 05/31/23 Range/Units 17:08 Urine Color Yellow Urine Appearance Clear Urine pH 6.5 (5.0-9.0) Ur Specific [place] >= 1.030 H (1.005-1.025) Urine Protein Negative (Neg-Trace) mg/dL Urine Glucose (UA) Negative (Negative) mg/dL Assessment and Plan (1) Syncope: Qualifiers: Syncope type: unspecified Qualified Code(s): R55 - Syncope and collapse Status: Acute He probably had a Sz from dehydration an dsome blood loss rather than a Sz. He has been Sz free for > 7 yrs on no meds. His EEG today is completely normal. Recommend: check for orthostatic hypotension. W/u for GI bleed. I would not restart his Keppra (2) Lactic acidosis: Status: Acute (3) Hypokalemia: Status: Acute (4) UGIB (upper gastrointestinal bleed): Status: Acute Plan 23-year-old male with history of autism, partial complex seizure disorder to be observed for syncope with possible UGIB. #Syncope- vasovagal vs r/t seizure -Given 1.6L IVF in ED -EKG shows sinus tachycardia, rate 101, no significant ST/T-wave abnormality -Leukocytosis- likely reactive, Lactis acidosis- ?due to hypovolemia/hypoperfusion vs seizure -eeg a.m. -neurology consult -monitor on telemetry -continue Keppra -seizure precautions #Normocytic anemia- ? acute UGIB -per mom, sister reported melena with bm this am and dark brown vomitus on wednesday -Hct 39.7 --> 32.3. above transfusion threshold -IV PPI -Clear liquid diet -GI consult - Monitor on telemetry -Repeat CBC @9pm, and am #Acute hypokalemia -repleted #History partial complex seizure disorder -noncompliant with anti-epileptics x years -keppa and eeg as above DVT prophylaxis- SCPs Full code Time Spent With Patient Time: Total time managing care of this patient today ____ minutes. Procedures Date of Service Date of Service: 06/01/23
[2023-06-01 11:09] VITALS: BMI 21.5
[2023-06-01 11:44] VITALS: BP 103/51; PULSE 84; RESP 18; TEMP 36.7; O2SAT 100
--- NOTE | 2023-06-01 11:58 | P.PNIM_ITS ---
Subjective Subjective Date of Service: 06/01/23 Review of Systems Follow up GI bleed and possible seizure feeling better no pain Physical Exam 2 Vital Signs: Vital Signs: Last Vital Signs Temp 98.1 F 06/01/23 11:44 Pulse 84 06/01/23 11:44 Resp 18 06/01/23 11:44 BP 103/51 L 06/01/23 11:44 Pulse Ox 100 06/01/23 11:44 O2 Del Method Room Air 06/01/23 11:44 BMI result Body Mass Index 21.5 Appearing in no acute distress lung sounds are clear to auscultation heart regular rate rhythm, clear S1, S2 positive bowel sounds, abdomen is soft, nontender neuro patient is alert x3, no focal deficits Objective Data Active Medications Acetaminophen (Acetaminophen 325 Mg Tablet) 650 mg PO Q6H PRN PRN Reason: Pain, Mild (Pain Scale 1-3) Docusate Sodium (Docusate Sodium 100 Mg Capsule) 100 mg PO DAILY PRN PRN Reason: Constipation Levetiracetam (Levetiracetam 500 Mg Tablet) 500 mg PO BID [facility] Last Admin: 06/01/23 07:59 Dose: 500 mg Documented By: RADHA Ondansetron HCl (Ondansetron Hcl 4 Mg/2 Ml Vial) 4 mg IVPUSH Q8H PRN PRN Reason: Nausea and Vomiting Pantoprazole Sodium (Pantoprazole Sodium 40 Mg/10 Ml Vial) 40 mg IVPUSH BID@0630,1630 [facility] Last Admin: 06/01/23 06:23 Dose: 40 mg Documented By: KELSEY Sodium Chloride (0.9 % Sodium Chloride Flush 3 Ml Syringe) 3 ml IVFLUSH QSHIFT [facility] Last Admin: 06/01/23 08:00 Dose: 3 ml Documented By: RADHA Labs 06/01/23 06:14 06/01/23 06:14 Labs: Laboratory Results - last 24 hr 05/31/23 05/31/23 05/31/23 11:45 12:56 14:54 MCV 90.8 MCH 30.7 MCHC 33.8 RDW 11.9 Plt Count 336 MPV 9.4 Immature Gran % (Auto) 0.6 H Neut % (Auto) 88.9 H Lymph % (Auto) 5.9 L [place] % (Auto) 4.4 Eos % (Auto) 0.0 Baso % (Auto) 0.2 Lymph # (Auto) 1.5 [place] # (Auto) 1.1 Eos # (Auto) 0.0 Baso # (Auto) 0.1 Abs Immat Gran (auto) 0.16 H Absolute Neuts (auto) 22.2 H Absolute Nucleated RBC 0.000 Nucleated RBC % (auto) 0.0 Smear Tech's Comments VERIFIED Anion Gap 20 Estim Creat Clear Calc 72.9 Estimated GFR > 60 Random Glucose 130 H Lactic Acid 4.5 H* Lactic Acid F/U @ 2Hr 1.3 Calcium 9.3 D Magnesium 2.3 Total Bilirubin 0.5 Direct Bilirubin 0.3 AST 15 ALT 11 Alkaline Phosphatase 40 Total Protein 7.0 Albumin 4.5 Lipase 35 Urine Color Urine Appearance Urine pH Ur Specific [place] Urine Protein Urine Glucose (UA) Urine Ketones Urine Blood Urine Nitrite Ur Leukocyte Esterase Stool Occult Blood POSITIVE Urine Opiates Screen Urine Fentanyl Screen Ur Barbiturates Screen Ur Phencyclidine Scrn Ur Amphetamines Screen U Benzodiazepines Scrn Urine Cocaine Screen U Marijuana (THC) Screen Ethyl Alcohol < 10 Influenza Type A (PCR) NEGATIVE Influenza Type B (PCR) NEGATIVE RSV RNA Qual (PCR) NEGATIVE SARS-CoV-2 RNA (RT-PCR) NEGATIVE 05/31/23 05/31/23 06/01/23 17:08 21:20 06:14 MCV 90.0 92.0 91.1 MCH 30.9 30.8 31.7 MCHC 34.4 33.5 34.7 RDW 12.0 12.2 12.1 Plt Count 277 TNP 264 MPV 9.2 L 10.3 9.3 L Immature Gran % (Auto) 0.5 H 0.3 0.3 Neut % (Auto) 80.0 H 66.7 48.4 Lymph % (Auto) 15.2 L 24.7 43.4 H [place] % (Auto) 4.0 7.2 5.4 Eos % (Auto) 0.1 0.7 1.9 Baso % (Auto) 0.2 0.4 0.6 Lymph # (Auto) 2.5 3.4 4.3 [place] # (Auto) 0.7 1.0 0.5 Eos # (Auto) 0.0 0.1 0.2 Baso # (Auto) 0.0 0.1 0.1 Abs Immat Gran (auto) 0.08 H 0.04 H 0.03 Absolute Neuts (auto) 13.2 H 9.1 H 4.8 Absolute Nucleated RBC 0.000 0.000 0.000 Nucleated RBC % (auto) 0.0 0.0 0.0 Smear Tech's Comments VERIFIED Anion Gap 12 Estim Creat Clear Calc 104.2 Estimated GFR > 60 Random Glucose 88 Lactic Acid Lactic Acid F/U @ 2Hr Calcium 8.8 Magnesium Total Bilirubin Direct Bilirubin AST ALT Alkaline Phosphatase Total Protein Albumin Lipase Urine Color Yellow Urine Appearance Clear Urine pH 6.5 Ur Specific [place] >= 1.030 H Urine Protein Negative Urine Glucose (UA) Negative Urine Ketones Negative Urine Blood Negative Urine Nitrite Negative Ur Leukocyte Esterase Negative Stool Occult Blood Urine Opiates Screen Not Detected Urine Fentanyl Screen Not Detected Ur Barbiturates Screen Not Detected Ur Phencyclidine Scrn Not Detected Ur Amphetamines Screen Not Detected U Benzodiazepines Scrn Not Detected Urine Cocaine Screen Not Detected U Marijuana (THC) Screen Not Detected Ethyl Alcohol Influenza Type A (PCR) Influenza Type B (PCR) RSV RNA Qual (PCR) SARS-CoV-2 RNA (RT-PCR) Assessment and Plan (1) Syncope: Status: Acute Plan 23-year-old male with history of autism, partial complex seizure disorder to be observed for syncope with possible UGIB. Syncope- vasovagal vs r/t seizure EKG shows sinus tachycardia, rate 101, no significant ST/T-wave abnormality Leukocytosis- likely reactive, Lactic acidosis- ?due to hypovolemia/hypoperfusion vs seizure neurology consult pending monitor on telemetry continue Keppra seizure precautions EEG pending Normocytic anemia possible acute UGIB per mom, sister reported melena with bm and dark brown vomitus on wednesday Hct above transfusion threshold IV PPI GI consult pending for possible EEG Monitor on telemetry Acute hypokalemia repleted and resolved History of partial complex seizure disorder off antiepileptics for more than 7 years, no seizures within that time. keppra and eeg as above DVT prophylaxis- SCPs Attending Dr. Miranda Full code Patient requires 2 inpatient midnights for treatment of syncope, possible seizure an upper GI bleed requiring specialty consultation Time Spent With Patient Time: Total time managing care of this patient today ____ minutes. Quality Stroke Does the patient have a stroke diagnosis?: No VTE Prior VTE?: No VTE Risk Level:: Medical - moderate - high VTE Device Contraindication: N/A - Device Ordered VTE Drug Contraindication: Treatment Not Indicated
--- NOTE | 2023-06-01 14:24 | PM.EVENT ---
Event Note Date of Service: 06/01/23 Event Note: GI consult dictated EGD planned for 06/02 to further evaluate upper gi bleeding. Patient and mother aware of risks and benefits and agree to proceed. Continue ppi, monitor hematocrit. Time Spent With Patient Time: Total time managing care of this patient today ____ minutes.
--- NOTE | 2023-06-01 14:29 | MHC.SHP ---
Pre-Procedural Eval Section A Date of Service: 06/01/23 The patient is an INPATIENT: Yes Changes since office visit: No Cold of Flu in the past 2 weeks, No New Medical Problems, No Changes in Medication and No Patient answered all questions The History & Physical has been completed within 30 days and I have reviewed it.: Yes Section B Chief Complaint: Seizure, ?UGIB Allergies: Allergies Allergy/AdvReac Type Severity Reaction Status Date / Time No Known Allergies Allergy Verified 05/31/23 11:33 Plan I have reviewed the history and physical and performed a pertinent physical examination on my patient. No changes have occurred unless specified. Time Spent With Patient Time: Total time managing care of this patient today ____ minutes.
[2023-06-01 16:00] VITALS: BP 116/56; PULSE 95; RESP 20; TEMP 36.6; O2SAT 100
[2023-06-01] MEDS: Acetaminophen 325 MG TABLET 650 MG PO (16:58)
[2023-06-01 19:34] VITALS: BP 113/55; PULSE 96; RESP 14; TEMP 36.6; O2SAT 100
--- NOTE | 2023-06-01 19:46 | CONS_ITS ---
DATE OF SERVICE: 06/01/2023 REFERRING PHYSICIAN: Soumya Hartley NP REASON FOR CONSULTATION: Upper GI bleeding. HISTORY OF PRESENT ILLNESS: The patient is a pleasant 23-year-old man, who was admitted to the hospital with syncope, black stools and vomiting brown liquid. The history is provided by the patient and his mother. He reportedly had diarrhea at home that was black in color for a day prior to admission. Two days prior to admission, he had muscle aches and vomited brownish material. He complains of some nonspecific generalized abdominal discomfort that seems to focus in the left upper quadrant, but has not had yadiel hematemesis. He denies a history of peptic ulcer disease and does not use NSAIDs, drink alcohol, or use other drugs or tobacco. He was evaluated in the emergency room where laboratory studies on admission showed a hematocrit of 39.7, down from 48 in December of this year. Rectal examination in the emergency department showed Hemoccult-positive stool and he did have one episode of melena overnight. Hematocrit this morning was 30.8. He did not receive a blood transfusion, but did receive IV fluids. He has had no hematemesis. Since admission, he has been started on a proton pump inhibitor and is currently on a clear liquid diet. PAST MEDICAL HISTORY: 1. Autism. 2. Seizure disorder. He denies other medical or surgical illnesses. MEDICATIONS: His current medication list is reviewed in the chart. ALLERGIES: THERE ARE NONE REPORTED. FAMILY HISTORY: His sister has achalasia and has undergone a procedure for this. SOCIAL HISTORY: There is no current tobacco, alcohol, or substance abuse. REVIEW OF SYSTEMS: SKIN: No pruritus. HEENT: Negative. CARDIOPULMONARY: No shortness of breath or chest pain. GASTROINTESTINAL: As above. GENITOURINARY: Negative. NEUROPSYCHIATRIC: Negative. PHYSICAL EXAMINATION: GENERAL: Shows a pleasant male, lying comfortably in bed. VITAL SIGNS: Reviewed in the electronic medical record and are stable. He had been tachycardic on admission, but is not now. SKIN: Anicteric. HEENT: Shows no scleral icterus. NECK: Without lymphadenopathy or thyromegaly. LUNGS: Clear. HEART: Shows a regular rate and rhythm. S1, S2. No murmur. ABDOMEN: Soft without focal masses or tenderness. Bowel sounds are present. No organomegaly is noted. EXTREMITIES: Without edema. LABORATORY DATA AND IMAGING STUDIES: Including CT scanning of the abdomen and pelvis are reviewed. IMPRESSION: Upper gastrointestinal bleeding. We discussed the differential diagnosis for his upper gastrointestinal bleeding including peptic ulcer disease, gastritis, erosive esophagitis, and other causes such as arteriovenous malformations or malignancy. We discussed endoscopy including risks and benefits of the procedure. The patient and his mother understand these risks and agreed to proceed. This will be scheduled for tomorrow. In the meantime, he will continue on a proton pump inhibitor and have his hematocrit monitored. Thanks for asking me to see him. I will follow him in the hospital with you. MD CUCA Gimenez/ANALI / [phone]
[2023-06-01 23:22] VITALS: BP 114/54; PULSE 82; RESP 18; TEMP 36.4; O2SAT 97
[2023-06-02] VITALS (15 sets, daily range): BP systolic 93–123; BP diastolic 41–68; PULSE 66–94; RESP 12–20; TEMP 36.1–36.8; O2SAT 95–100
--- NOTE | 2023-06-02 | ECG_ITS ---
Test Reason : [place] Blood Pressure : / mmHG Vent. Rate : 101 BPM Atrial Rate : 101 BPM P-R Int : 160 ms QRS Dur : 096 ms QT Int : 336 ms P-R-T Axes : 077 066 073 degrees QTc Int : 435 ms Sinus tachycardia RSR' or QR pattern in V1 suggests right ventricular conduction delay Nonspecific ST abnormality Abnormal ECG When compared with ECG of 31-MAY-2023 13:35, No significant change was found Referred By: Soumya Hartley Electronically Signed By:BILLY CALLAHAN MD
[2023-06-02 00:58] LABS: Glucose, Whole Blood 86 mg/dL (60-115)
[2023-06-02] MEDS: ondansetron HCL 4 MG/2 ML VIAL IVPUSH (01:18)
--- NOTE | 2023-06-02 05:34 | PC.NURSE ---
pt had witnessed fall in the bathroom. pt was using the bathroom with supervision of the TIRE REPAIRER. pt went to get up felt dizzy, fell back and descended down the wall to the floor landing on his butt. made aware. Vitals stable and pt is without injuries.
[2023-06-02] MEDS: Pantoprazole Sodium 40 MG/10 ML VIAL IVPUSH ×2 (06:12→15:44)
[2023-06-02] MEDS: 0.9 % Sodium Chloride Flush 3 ML SYRINGE IVFLUSH ×2 (07:51→15:44)
[2023-06-02] MEDS: levETIRAcetam 500 MG TABLET PO (07:51)
--- NOTE | 2023-06-02 10:24 | P.PNIM_ITS ---
Subjective Subjective Date of Service: 06/02/23 Review of Systems Follow up GI bleed and seizure feeling better no pain Physical Exam 2 Vital Signs: Vital Signs: Last Vital Signs Temp 98.3 F 06/02/23 07:57 Pulse 71 06/02/23 07:57 Resp 18 06/02/23 07:57 BP 110/54 L 06/02/23 07:57 Pulse Ox 100 06/02/23 07:57 O2 Del Method Room Air 06/02/23 07:57 BMI result Body Mass Index 21.5 Appearing in no acute distress, autistic, verbal lung sounds are clear to auscultation heart regular rate rhythm, clear S1, S2 positive bowel sounds, abdomen is soft, nontender neuro patient is alert x3, no focal deficits Objective Data Active Medications Acetaminophen (Acetaminophen 325 Mg Tablet) 650 mg PO Q6H PRN PRN Reason: Pain, Mild (Pain Scale 1-3) Last Admin: 06/01/23 16:58 Dose: 650 mg Documented By: RADHA Docusate Sodium (Docusate Sodium 100 Mg Capsule) 100 mg PO DAILY PRN PRN Reason: Constipation Levetiracetam (Levetiracetam 500 Mg Tablet) 500 mg PO BID [facility] Last Admin: 06/02/23 07:51 Dose: 500 mg Documented By: RADHA Ondansetron HCl (Ondansetron Hcl 4 Mg/2 Ml Vial) 4 mg IVPUSH Q8H PRN PRN Reason: Nausea and Vomiting Last Admin: 06/02/23 01:18 Dose: 4 mg Documented By: PEARL Pantoprazole Sodium (Pantoprazole Sodium 40 Mg/10 Ml Vial) 40 mg IVPUSH BID@0630,1630 [facility] Last Admin: 06/02/23 06:12 Dose: 40 mg Documented By: JAMARCUS Sodium Chloride (0.9 % Sodium Chloride Flush 3 Ml Syringe) 3 ml IVFLUSH QSHIFT [facility] Last Admin: 06/02/23 07:51 Dose: 3 ml Documented By: RADHA Labs 06/01/23 06:14 06/01/23 06:14 Labs: Laboratory Results - last 24 hr 06/02/23 00:53 POC Glucose 86 Microbiology Microbiology Results: Microbiology 05/31/23 12:46 Blood Culture - Preliminary Blood - Venous No growth after 24 hours. 05/31/23 12:56 Blood Culture - Preliminary Blood - Venous No growth after 24 hours. Assessment and Plan (1) Syncope: Status: Acute Plan 23-year-old male with history of autism, partial complex seizure disorder to be observed for syncope with possible UGIB. Syncope- vasovagal vs r/t seizure EKG shows sinus tachycardia, rate 101, no significant ST/T-wave abnormality Leukocytosis- likely reactive, Lactic acidosis- ?due to hypovolemia/hypoperfusion vs seizure neurology consult>possible sx related to dehydration, hypotension monitor on telemetry stop Keppra seizure precautions EEG normal Second-degree heart block type 1 Noted on telemetry Obtain EKG Cardiology consultation Normocytic anemia possible acute UGIB per mom, sister reported melena with bm and dark brown vomitus on wednesday Hct above transfusion threshold IV PPI GI consult pending for possible EEG Monitor on telemetry Acute hypokalemia repleted and resolved History of partial complex seizure disorder off antiepileptics for more than 7 years, no seizures within that time. keppra stopped as per neurology DVT prophylaxis- SCPs Attending Dr. Miranda Full code Patient requires 2 inpatient midnights for treatment of syncope, possible seizure an upper GI bleed requiring specialty consultation Quality Stroke Does the patient have a stroke diagnosis?: No VTE Prior VTE?: No VTE Risk Level:: Medical - moderate - high VTE Device Contraindication: N/A - Device Ordered VTE Drug Contraindication: Treatment Not Indicated
--- NOTE | 2023-06-02 10:48 | HO.ANESPROP2 ---
HPI - Anesthesia Eval Consult details Narrative: 23 yo male patient for EGD with Gold probe PMFSH Active Problems Active Problems: All Active Problems (Updated 06/02/23 @ 10:49 by Kaya Coy MD) Syncope (Acute) Lactic acidosis (Acute) Hypokalemia (Acute) UGIB (upper gastrointestinal bleed) (Acute) Vomiting of dark brown fluid, diarrhea with dark colored stool. Last episode of vomiting yesterday per mum. Patient has autism and not able to reliably answer questions H/o seizures- has been non-compliant with medication for 6 years. Mum states patient was seen by Neurologist during this admission. EEG 06/01/23 was wnl. Past Medical History Medical History (Updated 06/02/23 @ 12:10 by Kaya Coy MD) Complex partial seizure disorder Autism Family History Family history of problems with anesthesia: No Surgical History History of Problems with Anesthesia: No Social History Social History Patient Tobacco Use Status: Never used Tobacco service: No Meds Allergies Allergy/AdvReac Type Severity Reaction Status Date / Time No Known Allergies Allergy Verified 05/31/23 11:33 Active Medications: Current Medications Acetaminophen (Acetaminophen 325 Mg Tablet) 650 mg PO Q6H PRN PRN Reason: Pain, Mild (Pain Scale 1-3) Last Admin: 06/01/23 16:58 Dose: 650 mg Docusate Sodium (Docusate Sodium 100 Mg Capsule) 100 mg PO DAILY PRN PRN Reason: Constipation Ondansetron HCl (Ondansetron Hcl 4 Mg/2 Ml Vial) 4 mg IVPUSH Q8H PRN PRN Reason: Nausea and Vomiting Last Admin: 06/02/23 01:18 Dose: 4 mg Pantoprazole Sodium (Pantoprazole Sodium 40 Mg/10 Ml Vial) 40 mg IVPUSH BID@0630,1630 [facility] Last Admin: 06/02/23 06:12 Dose: 40 mg Sodium Chloride (0.9 % Sodium Chloride Flush 3 Ml Syringe) 3 ml IVFLUSH QSHIFT [facility] Last Admin: 06/02/23 07:51 Dose: 3 ml Home Medications Medication Instructions Recorded Confirmed Last Taken Type No Known Home Meds 01/26/23 05/31/23 Unknown History Exam Exam Date and Time: June 02, 2023 1048 Height,Weight and Vital Signs: Height 5 ft 10 in Weight 68 kg Last Vital Signs Temp 98.3 F 06/02/23 07:57 Pulse 71 06/02/23 07:57 Resp 18 06/02/23 07:57 BP 110/54 L 06/02/23 07:57 Pulse Ox 100 06/02/23 07:57 O2 Del Method Room Air 06/02/23 07:57 Vital Signs Temp Pulse Resp BP Pulse Ox O2 Del Method 06/02/23 11:22 97 F 82 20 106/68 98 Room Air 06/02/23 07:57 98.3 F 71 18 110/54 L 100 Room Air 06/02/23 04:00 97.8 F 66 18 105/51 L 100 Room Air 06/02/23 02:08 98.2 F 92 16 117/58 L 100 06/02/23 00:57 97.6 F 92 18 117/58 L 100 Room Air 06/01/23 23:22 97.6 F 82 18 114/54 L 97 Room Air 06/01/23 19:34 97.8 F 96 14 113/55 L 100 Room Air 06/01/23 16:00 97.8 F 95 20 116/56 L 100 Room Air Pertinent Lab Results Pertinent Lab Results: Laboratory Tests 05/31/23 05/31/23 05/31/23 11:45 12:56 14:54 WBC 25.0 H RBC 4.37 L Hgb 13.4 L Hct 39.7 L MCV 90.8 MCH 30.7 MCHC 33.8 RDW 11.9 Plt Count 336 MPV 9.4 Immature Gran % (Auto) 0.6 H Neut % (Auto) 88.9 H Lymph % (Auto) 5.9 L [place] % (Auto) 4.4 Eos % (Auto) 0.0 Baso % (Auto) 0.2 Lymph # (Auto) 1.5 [place] # (Auto) 1.1 Eos # (Auto) 0.0 Baso # (Auto) 0.1 Abs Immat Gran (auto) 0.16 H Absolute Neuts (auto) 22.2 H Absolute Nucleated RBC 0.000 Nucleated RBC % (auto) 0.0 Smear Tech's Comments VERIFIED Sodium 142 Potassium 3.2 L Chloride 104 Carbon Dioxide 21 L Anion Gap 20 BUN 35 H Creatinine 1.20 Estim Creat Clear Calc 72.9 Estimated GFR > 60 POC Glucose Random Glucose 130 H Lactic Acid 4.5 H* Lactic Acid F/U @ 2Hr 1.3 Calcium 9.3 D Magnesium 2.3 Total Bilirubin 0.5 Direct Bilirubin 0.3 AST 15 ALT 11 Alkaline Phosphatase 40 Troponin I High Sens < 2.7 Total Protein 7.0 Albumin 4.5 Lipase 35 Urine Color Urine Appearance Urine pH Ur Specific [place] Urine Protein Urine Glucose (UA) Urine Ketones Urine Blood Urine Nitrite Ur Leukocyte Esterase Stool Occult Blood POSITIVE Urine Opiates Screen Urine Fentanyl Screen Ur Barbiturates Screen Ur Phencyclidine Scrn Ur Amphetamines Screen U Benzodiazepines Scrn Urine Cocaine Screen U Marijuana (THC) Screen Ethyl Alcohol < 10 Influenza Type A (PCR) NEGATIVE Influenza Type B (PCR) NEGATIVE RSV RNA Qual (PCR) NEGATIVE SARS-CoV-2 RNA (RT-PCR) NEGATIVE 05/31/23 05/31/23 06/01/23 17:08 21:20 06:14 WBC 16.5 H 13.7 H 10.0 RBC 3.59 L 3.99 L 3.38 L Hgb 11.1 L 12.3 L 10.7 L Hct 32.3 L 36.7 L 30.8 L MCV 90.0 92.0 91.1 MCH 30.9 30.8 31.7 MCHC 34.4 33.5 34.7 RDW 12.0 12.2 12.1 Plt Count 277 TNP 264 MPV 9.2 L 10.3 9.3 L Immature Gran % (Auto) 0.5 H 0.3 0.3 Neut % (Auto) 80.0 H 66.7 48.4 Lymph % (Auto) 15.2 L 24.7 43.4 H [place] % (Auto) 4.0 7.2 5.4 Eos % (Auto) 0.1 0.7 1.9 Baso % (Auto) 0.2 0.4 0.6 Lymph # (Auto) 2.5 3.4 4.3 [place] # (Auto) 0.7 1.0 0.5 Eos # (Auto) 0.0 0.1 0.2 Baso # (Auto) 0.0 0.1 0.1 Abs Immat Gran (auto) 0.08 H 0.04 H 0.03 Absolute Neuts (auto) 13.2 H 9.1 H 4.8 Absolute Nucleated RBC 0.000 0.000 0.000 Nucleated RBC % (auto) 0.0 0.0 0.0 Smear Tech's Comments VERIFIED Sodium 143 Potassium 3.3 Chloride 112 H Carbon Dioxide 22 Anion Gap 12 BUN 19 H Creatinine 0.84 Estim Creat Clear Calc 104.2 Estimated GFR > 60 POC Glucose Random Glucose 88 Lactic Acid Lactic Acid F/U @ 2Hr Calcium 8.8 Magnesium Total Bilirubin Direct Bilirubin AST ALT Alkaline Phosphatase Troponin I High Sens Total Protein Albumin Lipase Urine Color Yellow Urine Appearance Clear Urine pH 6.5 Ur Specific [place] >= 1.030 H Urine Protein Negative Urine Glucose (UA) Negative Urine Ketones Negative Urine Blood Negative Urine Nitrite Negative Ur Leukocyte Esterase Negative Stool Occult Blood Urine Opiates Screen Not Detected Urine Fentanyl Screen Not Detected Ur Barbiturates Screen Not Detected Ur Phencyclidine Scrn Not Detected Ur Amphetamines Screen Not Detected U Benzodiazepines Scrn Not Detected Urine Cocaine Screen Not Detected U Marijuana (THC) Screen Not Detected Ethyl Alcohol Influenza Type A (PCR) Influenza Type B (PCR) RSV RNA Qual (PCR) SARS-CoV-2 RNA (RT-PCR) 06/02/23 00:53 WBC RBC Hgb Hct MCV MCH MCHC RDW Plt Count MPV Immature Gran % (Auto) Neut % (Auto) Lymph % (Auto) [place] % (Auto) Eos % (Auto) Baso % (Auto) Lymph # (Auto) [place] # (Auto) Eos # (Auto) Baso # (Auto) Abs Immat Gran (auto) Absolute Neuts (auto) Absolute Nucleated RBC Nucleated RBC % (auto) Smear Tech's Comments Sodium Potassium Chloride Carbon Dioxide Anion Gap BUN Creatinine Estim Creat Clear Calc Estimated GFR POC Glucose 86 Random Glucose Lactic Acid Lactic Acid F/U @ 2Hr Calcium Magnesium Total Bilirubin Direct Bilirubin AST ALT Alkaline Phosphatase Troponin I High Sens Total Protein Albumin Lipase Urine Color Urine Appearance Urine pH Ur Specific [place] Urine Protein Urine Glucose (UA) Urine Ketones Urine Blood Urine Nitrite Ur Leukocyte Esterase Stool Occult Blood Urine Opiates Screen Urine Fentanyl Screen Ur Barbiturates Screen Ur Phencyclidine Scrn Ur Amphetamines Screen U Benzodiazepines Scrn Urine Cocaine Screen U Marijuana (THC) Screen Ethyl Alcohol Influenza Type A (PCR) Influenza Type B (PCR) RSV RNA Qual (PCR) SARS-CoV-2 RNA (RT-PCR) Airway Mallampati Class: II TM Dist: >3cm Neck ROM: Full Loose/Missing/Broken Teeth: No (Denies broken, loose, missing teeth) Heart: RRR Lungs: CTAB Assessment and Plan Assessment Anesthesia Assessment: Anesthesia Plan Discussed and Chart Reviewed Final Anesthetic Review Family History of Problems with Anesthesia: No History of Problems with Anesthesia: No NPO: Yes ASA Class: III and Emergency Final Preanesthetic Review: No Changes in Pt Med Stat, Meds/Allgs Chart Reviewed, Consent Obtained/Reviewed and Anes Risks/Benef Reviewed Patient Risk: Intermediate Procedure Risk: Intermediate Assessment/Block/Sedation in SS: Assess/Block/Sedation-SS Anesthetic Plan Anesthetic Plan: GA Disposition: Standard PACU
--- NOTE | 2023-06-02 11:15 | PC.NURSE ---
Pt transported off unit for EGD.
--- NOTE | 2023-06-02 12:34 | P.BOP_ITS ---
Brief Operative Note Date of Service: 06/02/23 Pre-op diagnosis: UGI Bleeding Post-op diagnosis: other (Gastric ulcers) Procedure: EGD with biopsies Surgeon: Lalo Richardson MD Anesthesia: GETA Was an Veterinary Pharmacologist used for this Procedure?: No Estimated blood loss (mL): 2.0 Pathology: other (A. Gastric antral ulcers B. Gastric antrum C. Proximal stomach) Condition: stable Disposition: PACU
--- NOTE | 2023-06-02 12:36 | PM.EVENT ---
Event Note Date of Service: 06/02/23 Event Note: GI-Full note dictated EGD with biopsies 1. Circumferential area of ulceration involving the mid-antrum. No active bleeding and grossly benign. Multiple biopsies obtained. 2. Gastric antrum otherwise WNL except for some edema and pallor. Biopsies taken. 3. Proximal stomach with some gastritis. Bx taken. Rec: Continue IV PPI for 24 hours, and then 40mg omeprazole BID. F/U labs in AM, including a Gastrin level given the endoscopic findings. Advance diet as tolerated. Repeat upper endo in 2 months. Avoid all aspirin and NSAIDs terminal gauger. D/W mother in detail. Thanks Time Spent With Patient Time: Total time managing care of this patient today ____ minutes.
--- NOTE | 2023-06-02 12:49 | OP_ITS ---
DATE OF SERVICE: 06/02/2023 SURGEON: Lalo Richardson MD INDICATIONS: The patient presents for evaluation of upper GI bleeding. Full consent has been obtained from his mother for this, including risks of bleeding and perforation. PREOPERATIVE DIAGNOSIS: Upper gastrointestinal bleeding. POSTOPERATIVE DIAGNOSIS: PROCEDURE PERFORMED: Esophagogastroduodenoscopy with biopsies. ESTIMATED BLOOD LOSS: COMPLICATIONS: ANESTHESIA: General anesthesia. ASSISTANTS: SPECIMENS: POSTOPERATIVE DIAGNOSES: Upper gastrointestinal bleeding, gastric ulcers, gastritis. DESCRIPTION OF PROCEDURE: The patient was placed in the supine position. The Olympus video gastroscope was passed in the posterior oropharynx and upper esophagus under direct vision. The scope was passed slowly into the distal esophagus. The gastroesophageal junction appeared normal at 39 cm. There was no sign of any esophagitis nor Ghazala-Richardson tear. There was no appreciable hiatal hernia. The scope easily entered the stomach. The scope was advanced to the pylorus and the duodenum was cannulated to the descending portion. The duodenum including the bulb appeared normal without mass or ulceration. There was no blood in the duodenum. The scope was withdrawn back to the stomach. The area involving the midportion of the antrum involved a circumferential ulcerated area with some surrounding edema. Overall, this area appeared to be benign. The ulcers appeared to be inactive without any sign of bleeding nor visible vessel. It was a peculiar distribution of the ulcer, given its circumferential involvement of the antrum. Multiple biopsies were obtained from the margins. The gastric mucosa proximal and distal to the ulcerated area appeared normal other than perhaps some pallor. I did obtain biopsies from the normal appearing gastric antrum as well in the region of the pylorus. There was good peristalsis. The scope was retroflexed visualizing the proximal stomach carefully, which also had some mild areas of gastritis and pallor, but no ulceration nor mass. Biopsies were obtained from the proximal stomach. The scope was straightened and withdrawn back in the esophagus. The esophageal mucosa appeared normal. The scope was withdrawn from the patient. He tolerated the procedure well and was returned to the recovery area in stable condition. IMPRESSION: 1. Circumferential ulcerated area in the region of antrum. 2. Gastritis. PLAN: The results of the biopsies will be checked. He will continue on his PPI. Given no sign of active bleeding, his diet will be advanced as tolerated. He will have followup laboratories. If H. pylori is present in the gastric biopsies we definitely would want to treat that. He will need to avoid all aspirin and NSAIDs. I have ordered a fasting serum gastrin level for the morning as well to rule out the unlikely possibility of a hypersecretory state(Anahy-Gil syndrome). I would recommend a repeat upper endoscopy in 2 months to assess for healing. He should remain on PPIs on a long-term basis at this point. This has been discussed with his mother. MD ALVINO Jasso/ANALI / [id number] MTDD
--- NOTE | 2023-06-02 12:59 | MHC.CM.PN ---
EMR REVIEWED, UPPER ENDOSCOPY COMPLETED TODAY, PER HOSPITALIST ANTIC PT WILL D/C HOME TOMORROW 06/03 W/NO SERVICES AND PT'S MOTHER FOR TRANSPORT. CM WILL CONT TO FOLLOW DC NEEDS.
[2023-06-03] MEDS: 0.9 % Sodium Chloride Flush 3 ML SYRINGE IVFLUSH
[2023-06-03 03:19] VITALS: BP 101/47; PULSE 78; RESP 18; TEMP 36.7; O2SAT 99
[2023-06-03] MEDS: Pantoprazole Sodium 40 MG/10 ML VIAL IVPUSH (06:25)
[2023-06-03 07:02] LABS: MANUAL DIFF FLAG NO
[2023-06-03 07:06] LABS: Basophils Percent Auto 0.5 % (0-2); Eosinophils Absolute Auto 0.3 X10*3/uL (0.0-0.4); Eosinophils Percent Auto 4.2 % (0-4); Hematocrit 27.5 % (42.0-52.0); Hemoglobin 9.8 g/dl (14.0-18.0); Imm Gran Abs Auto 0.02 X10*3/uL (0.00-0.03); Imm Gran Pct Auto 0.3 % (0.0-0.4); Lymphocytes Absolute Auto 2.2 X10*3/uL (1.2-4.9); Mean Corpuscular HGB Conc 35.6 g/dl (31.0-36.0); Mean Corpuscular Hemoglobin 31.6 pg (27.0-33.0); Mean Corpuscular Volume 88.7 fL (80.0-98.0); Mean Platelet Volume 8.9 fL (9.4-12.4); Monocytes Absolute Auto 0.5 X10*3/uL (0.1-1.2); Monocytes Percent Auto 5.8 % (2-11); Neutrophils Absolute Auto 4.6 x10*3/uL (2.0-8.3); Neutrophils Percent Auto 60.2 % (45-73); Platelet Count 252 X10*3/uL (160-400); White Blood Count 7.7 X10*3/uL (4.8-10.8)
[2023-06-03 07:19] VITALS: BP 118/61; PULSE 87; RESP 18; TEMP 36.7; O2SAT 100
[2023-06-03 07:21] LABS: Anion Gap 11 (12-20); Blood Urea Nitrogen 7 mg/dL (9-16); Calcium 8.9 mg/dL (8.4-10.2); Carbon Dioxide 26 mmol/L (22-29); Chloride 109 mmol/L (96-108); Creatinine Clr Calc Pharmacy 142.2; Estimated Glomerular Filt Rate > 60; Glucose Fasting 109 mg/dL (60-99); Potassium 3.5 mmol/L (3.3-5.1); Sodium 142 mmol/L (135-145)
[2023-06-03 11:15] VITALS: BP 126/57; PULSE 80; RESP 16; TEMP 36.7; O2SAT 100
--- NOTE | 2023-06-03 11:20 | PM.CNCAR ---
History of Present Illness History of Present Illness Date of Service: 06/03/23 Requesting physician: Maryellen Pope Chief complaint: Seizure, ?UGIB, Mobitz type 1 Narrative: [age] year gentleman presented with upper GI bleed and syncope. He was noticed to have Wenckebach on telemetry. Endoscopy has shown gastritis and he had biopsies performed to rule out H pylori. Overall stable clinically. He had short episode of Wenckebach yesterday, PMFSH Past Medical History Medical History (Updated 06/03/23 @ 11:22 by Prince Reed MD) Complex partial seizure disorder Autism Social History Social History Patient Tobacco Use Status: Never used Tobacco Smoked in Last 30 Days: No Use of substances other than those prescribed or required for medical reasons: No Currently Displaying Signs/Symptoms of Drug Intoxication Withdrawal: No Are you DNR?: No Advance Directives: No Do you have thoughts of harming others: None Do you have a plan to hurt others: No Plan Nutrition Risks: No Nutritional Risk service: No Meds Allergies Allergy/AdvReac Type Severity Reaction Status Date / Time No Known Allergies Allergy Verified 05/31/23 11:33 Active Medications: Current Medications Acetaminophen (Acetaminophen 325 Mg Tablet) 650 mg PO Q6H PRN PRN Reason: Pain, Mild (Pain Scale 1-3) Last Admin: 06/01/23 16:58 Dose: 650 mg Docusate Sodium (Docusate Sodium 100 Mg Capsule) 100 mg PO DAILY PRN PRN Reason: Constipation Lactated Ringer's (Lr) 1,000 mls @ 100 mls/hr IVCONT .Q10H [facility] Last Admin: 06/03/23 08:41 Dose: Not Given Ondansetron HCl (Ondansetron Hcl 4 Mg/2 Ml Vial) 4 mg IVPUSH Q8H PRN PRN Reason: Nausea and Vomiting Last Admin: 06/02/23 01:18 Dose: 4 mg Ondansetron HCl (Ondansetron Hcl 4 Mg/2 Ml Vial) 4 mg IVPUSH ONCE PRN PRN Reason: Nausea and Vomiting Pantoprazole Sodium (Pantoprazole Sodium 40 Mg/10 Ml Vial) 40 mg IVPUSH BID@0630,1630 [facility] Last Admin: 06/03/23 06:25 Dose: 40 mg Sodium Chloride (0.9 % Sodium Chloride Flush 3 Ml Syringe) 3 ml IVFLUSH QSHIFT [facility] Last Admin: 06/03/23 00:00 Dose: 3 ml Home Medications Medication Instructions Recorded Confirmed Last Taken Type No Known Home Meds 01/26/23 05/31/23 Unknown History Physical Exam Vital Signs: Vital Signs: Last Vital Signs Temp 98.1 F 06/03/23 11:15 Pulse 80 06/03/23 11:15 Resp 16 06/03/23 11:15 BP 126/57 L 06/03/23 11:15 Pulse Ox 100 06/03/23 11:15 O2 Del Method Room Air 06/03/23 11:15 O2 Flow Rate 3.5 06/02/23 19:15 BMI result Body Mass Index 21.5 GENERAL APPEARANCE: in no acute distress, pleasant. Pale appearing. NECK: no carotid bruit, no jugular venous distention. SKIN: no suspicious lesions, warm and dry. HEART: no murmurs, regular rate and rhythm. LUNGS: clear to auscultation bilaterally. ABDOMEN: soft, nontender. EXTREMITIES: no edema. PERIPHERAL PULSES: equal. NEUROLOGIC: No gross deficits, AAO X 3 Objective Labs and Meds 06/03/23 06:57 06/03/23 06:57 Lab results: Laboratory Results - last 24 hr 06/03/23 06:57 WBC 7.7 RBC 3.10 L Hgb 9.8 L Hct 27.5 L MCV 88.7 MCH 31.6 MCHC 35.6 RDW 12.0 Plt Count 252 MPV 8.9 L Immature Gran % (Auto) 0.3 Neut % (Auto) 60.2 Lymph % (Auto) 29.0 [place] % (Auto) 5.8 Eos % (Auto) 4.2 H Baso % (Auto) 0.5 Lymph # (Auto) 2.2 [place] # (Auto) 0.5 Eos # (Auto) 0.3 Baso # (Auto) 0.0 Abs Immat Gran (auto) 0.02 Absolute Neuts (auto) 4.6 Absolute Nucleated RBC 0.000 Nucleated RBC % (auto) 0.0 Sodium 142 Potassium 3.5 Chloride 109 H Carbon Dioxide 26 Anion Gap 11 L BUN 7 L Creatinine 0.79 Estim Creat Clear Calc 142.2 Estimated GFR > 60 Fasting Glucose 109 H Calcium 8.9 Assessment and Plan (1) Mobitz type 1 second degree atrioventricular block: Status: Acute Plan 23-year-old gentleman with GI bleed and syncope secondary to GI bleed. He has been noticed to have Mobitz type 1 second-degree AV block on telemetry. This is a benign finding and is unrelated to the syncopal episode. Currently no further workup is required for this. Thank you for allowing me to participate in the care of your patient. Please feel free to contact me if you have any questions. Procedures Date of Service Date of Service: 06/03/23
[2023-06-03 12:20] VITALS: O2SAT 100
--- NOTE | 2023-06-03 13:51 | MHC.CM.PN ---
EMR REVIEWED, H&H TRENDING DOWN, NO PLAN FOR DC TODAY, CM WILL CONT TO FOLLOW DC NEEDS.
--- NOTE | 2023-06-03 14:21 | HO.POSTANES ---
Post Anesthesia Evaluation Post Anesthesia Evaluation Date of Service: 06/03/23 Vital Signs: Vital Signs Temp Pulse Resp BP Pulse Ox O2 Del Method 06/03/23 12:20 100 Room Air 06/03/23 11:15 98.1 F 80 16 126/57 L 100 Room Air 06/03/23 07:19 98.0 F 87 18 118/61 100 Room Air 06/03/23 03:19 98.1 F 78 18 101/47 L 99 Room Air Anesthesia: General Endotracheal-GETA Mental Status: Awake Pain Control: Satisfactory Nausea/Vomiting: None Hydration: Adequate Anesthesia-Related Issues: No Anes. Related Issues
[2023-06-03 14:39] LABS: Hematocrit 28.9 % (42.0-52.0); Hemoglobin 10.4 g/dl (14.0-18.0)
--- NOTE | 2023-06-03 14:56 | PM.DS ---
DS: Providers Provider Date of Service: 06/03/23 Date of admission: 06/01/23 10:27 Date of discharge: 06/03/23 Primary care physician: ANANDA Spicer Consults: 05/31/23 16:59 Consult to Gastroenterology Routine Consulting Provider: Lalo Richardson Reason for consultation: ?ugib 05/31/23 17:27 Consult to Neurology Routine Consulting Provider: [facility] Reason for consultation: syncope, hx partial coomplex seizures 06/02/23 10:21 Consult to Cardiology Routine Consulting Provider: [facility] Reason for consultation: Cielo Attending physician on discharge: Alec Novak Discharging clinician: Maryellen Pope DS: Diagnosis Discharge Diagnosis (1) UGIB (upper gastrointestinal bleed): Status: Acute (2) Gastric ulcer: Status: Acute (3) Mobitz type 1 second degree atrioventricular block: Status: Acute (4) Lactic acidosis: Status: Acute DS: Summary Hospital Course Hospital Course: From H&P on day of admission 23-year-old male with history of autism, partial complex seizure disorder presents the ED with his mother for evaluation of syncope. The patient is not a good historian secondary to his autism. His mother states that 2 days ago, he was experiencing diffuse myalgias and vomited dark brown liquid x2. No yadiel blood or coffee-grounds noted. She states then today has had 2 episodes of diarrhea. While having a bowel movement, he appeared to have syncopized and was found by his sister. Per their report, there was stool around the bathroom that was black in appearance with tinges of blood. The patient was noted to be pale, clammy, and ?out of it?. The patient has not been taking any antiepileptics in several years and has not seen a neurologist since 2017 (Elisa) because he felt ?he was cured?. He has also not had any seizure activity since that time. No recent illness, fevers, chills, abdominal pain, persistent nausea. Not on any blood thinners. No history of similar symptoms. On arrival, patient tachycardic to 118, afebrile, normal thermic, no hypotension. No hypoxia. Initially had leukocytosis of 25.0, H/H 13.4/39.7, MCV 90 0.8%. Renal function normal, electrolyte levels normal except for potassium 3.2, CO2 21. Initial lactic acid 4.5, repeat 1.3 following 1.6 L IVF. Troponin undetectable. Following IV fluids, hematology improved with leukocytosis 16.5 but drop in H/H to 11.1/32.3%. Stool was heme positive. Urinalysis unremarkable. Urine tox screen unremarkable, ethyl alcohol level undetectable. Negative for influenza, RSV, COVID-19. Chest x-ray negative for any acute cardiopulmonary. CT abdomen/pelvis without any evidence of active GI bleeding. In the ED, given 1000 mg IV Keppra, 1600 mL IVF, 80 mg pantoprazole IV drip, 40 mEq potassium chloride, and 3.375 g IV Zosyn. Syncope- Likely vasovagal/related to GI bleed. Althought patient does have history of seizure disorder, he was seen by neurology thought episode was likely due to dehydration, GI bleeding. Has been off antiepileptics for more than 7 years, no seizures within that time. EEG negative. Recommended not to resume keppra Normocytic anemia due to acute UGIB from gastric ulcer seen by GI, and underwent EGD on 06/02 which found the following: EGD with biopsies 1. Circumferential area of ulceration involving the mid-antrum. No active bleeding and grossly benign. Multiple biopsies obtained. 2. Gastric antrum otherwise WNL except for some edema and pallor. Biopsies taken. 3. Proximal stomach with some gastritis. Bx taken. Gastrin level pending. will need outpatient follow up with GI for repeat EGD in two months. Plan for PPI bid for the next one month and then daily. Avoid nsaids. H/H has remained stable. Diet advanced and tolerating regular diet. While on telemetry he was noted to have Second-degree heart block type 1. He was asymptomatic. He was seen by cardiology who felt that was unrelated to the syncopal episode and no further workup is required. Acute hypokalemia repleted and resolved acute lactic acidosis. related to hypovolemia/hypoperfusion not related to sepsis. resolved with IVF Time Attestation Discharge coordination time: Greater than 30 minutes Quality: Safe Use of Opioids Does Pt have an Active Cancer Diagnosis on the Problem List?: No Quality: Stroke Does the patient have a stroke diagnosis?: No Physical Exam Vital Signs: Vital Signs: Last Vital Signs Temp 98.1 F 06/03/23 11:15 Pulse 80 06/03/23 11:15 Resp 16 06/03/23 11:15 BP 126/57 L 06/03/23 11:15 Pulse Ox 100 06/03/23 12:20 O2 Del Method Room Air 06/03/23 12:20 O2 Flow Rate 3.5 06/02/23 19:15 BMI result Body Mass Index 21.5 Const: General: cooperative, comfortable, no acute distress, alert and awake Nutritional Appearance: thin Resp: Effort & Inspection: normal respiratory effort, able to speak in complete sentences, no respiratory distress and no use of accessory muscles Cardio: Rate: regular rate GI: Inspection: No distended Palpation (GI): Soft to palpation and nontender Neuro: Other: grossly nonfocal DS: Data Data Completed and Pending Completed studies during hospitalization [Text1]: Pending at discharge 06/02/23 12:12 Surgical [PTH] Routine Labs on day of discharge: Laboratory Results - last 24 hr 06/03/23 06/03/23 06:57 14:21 WBC 7.7 RBC 3.10 L Hgb 9.8 L 10.4 L Hct 27.5 L 28.9 L MCV 88.7 MCH 31.6 MCHC 35.6 RDW 12.0 Plt Count 252 MPV 8.9 L Immature Gran % (Auto) 0.3 Neut % (Auto) 60.2 Lymph % (Auto) 29.0 [place] % (Auto) 5.8 Eos % (Auto) 4.2 H Baso % (Auto) 0.5 Lymph # (Auto) 2.2 [place] # (Auto) 0.5 Eos # (Auto) 0.3 Baso # (Auto) 0.0 Abs Immat Gran (auto) 0.02 Absolute Neuts (auto) 4.6 Absolute Nucleated RBC 0.000 Nucleated RBC % (auto) 0.0 Sodium 142 Potassium 3.5 Chloride 109 H Carbon Dioxide 26 Anion Gap 11 L BUN 7 L Creatinine 0.79 Estim Creat Clear Calc 142.2 Estimated GFR > 60 Fasting Glucose 109 H Calcium 8.9 Preliminary micro results at discharge 05/31/23 12:56 Blood Culture - Preliminary Blood - Venous No growth after 48 hours. 05/31/23 12:46 Blood Culture - Preliminary Blood - Venous No growth after 48 hours. Discharge Plan Discharge Anticipated Discharge Date/Time: 06/03/23 15:16 Patient Disposition: Home, Self-Care Discharge Diagnosis: Upper GI Bleed related to gastric ulcer probable syncope hypokalemia Referrals: Ruib Garrison FNP [Primary Care Provider] - 1 Week Lalo Richardson MD [Physician] - 2 Months Discharge Medications: New omeprazole 40 mg capsule,delayed release(DR/EC) 40 mg PO BID 30 Days Qty: 60 0RF Discharge Orders: Discharge Order (Routine); Ordered 06/03/23 Ordered By: Maryellen Pope Activity on Discharge: As tolerated Stand Alone Forms: Patient Portal Discharge page Care Plan Goals: see below Health Concerns: upper GI bleed gastric ulcer low potassium mobitz type 1 second degree heart block Plan of Treatment: Take 40mg omeprazole twice daily for one month and then daily after that unless GI recommends to continue twice daily Gastrin level pending Will need repeat upper endo in 2 months Avoid all aspirin and NSAIDs (ibuprofen, motrin, etc) senior technical writer Call to schedule follow up with PCP For heart block - this particular finding is benign and no further work up is required Assessment: see discharge summary
[2023-06-03 15:34] VITALS: PULSE 75; TEMP 37.1
--- NOTE | 2023-06-03 15:36 | MHC.CM.PN ---
pt medically cleared for dc home self care and family support, pt's mother for transport
[2023-06-09 09:44] LABS: Gastrin 115 pg/mL (<=100)
== END 2023-06-03 16:20 | disposition home or self-care (01) | DRG 241 ==
LOC: HO.ED 15:30 → HO.EDOVER 17:49 → HO.IMC 18:31
PROVIDERS: Internal Medicine; Nurse Practitioner Acute Care; Physician Assistant; Physician Assistant Medical; Admitting Provider Physician Assistant; Emergency Provider Student in an Organized Health Care Education/Training Program; PCP Registered Nurse; Visit Provider Physician Assistant Medical
PROC: 0DB78ZX Excision of Stomach, Pylorus, Via Natural or Artificial Opening Endoscopic, Diagnostic (ICD-10-PCS; CPT 43239; principal; 2023-06-02 11:30)
DX: K29.71 Gastritis, unspecified, with bleeding (principal); E87.20 Acidosis, unspecified; F84.0 Autistic disorder; I44.1 Atrioventricular block, second degree; E87.6 Hypokalemia; E86.1 Hypovolemia; D64.9 Anemia, unspecified; K25.4 Chronic or unspecified gastric ulcer with hemorrhage; G40.909 Epilepsy, unspecified, not intractable, without status epilepticus; Z20.822 Contact with and (suspected) exposure to COVID-19; Z91.148 Patient's other noncompliance with medication regimen for other reason
CPT/HCPCS: 43239; 0241U; 36415; 71046; 74178; 80048; 80076; 80307; 81003; 82272; 82941; 82947; 83605; 83690; 83735; 84484; 85014; 85018; 85025; 87040; 88305; 88342; 93005; 95816; 99222; 99285; J0330; J1953; J2250; J2405; J2543; J3010; Q9967

== ENCOUNTER → 2023-06-01 10:27 | Outpatient (BNV) | payer MEDICAID, SELFPAY | PROVIDERS: Admitting Provider Physician Assistant; Emergency Provider Student in an Organized Health Care Education/Training Program; PCP Registered Nurse; Visit Provider Internal Medicine Cardiovascular Disease | DX: I44.1 Atrioventricular block, second degree (principal) | CPT/HCPCS: 99222 ==

== ENCOUNTER → 2023-06-01 10:27 | Outpatient (BNV) | payer MEDICAID, SELFPAY | PROVIDERS: Admitting Provider Physician Assistant; Emergency Provider Student in an Organized Health Care Education/Training Program; PCP Registered Nurse; Visit Provider Nurse Practitioner Acute Care | DX: K92.2 Gastrointestinal hemorrhage, unspecified (principal); K25.9 Gastric ulcer, unspecified as acute or chronic, without hemorrhage or perforation; I44.1 Atrioventricular block, second degree; E87.20 Acidosis, unspecified | CPT/HCPCS: 99223; 99232; 99239 ==